=== PATIENT | female | born 1995 | race Caucasian/White ===

== ENCOUNTER 2018-03-23 15:22 | Outpatient (CLI) | payer MEDICAID, SELFPAY ==
[2018-03-23 15:53] LABS: Abs Immature Grans 0.11 k/cumm (0.0-0.09); Absolute Basophil Count 0.03 k/cumm (0.0-0.2); Absolute Eosinophil Count 0.28 k/cumm (0.0-0.7); Absolute Lymphocyte Count 2.45 k/cumm (1.2-3.4); Absolute Monocyte Count 0.96 k/cumm (0.11-0.7); Absolute Neutrophil Count 11.13 k/cumm (1.2-6.7); Basophils % 0.2; Eosinophils % 1.9; HCT 35.5 % (36.0-46.0); HGB 11.7 g/dL (12.0-15.5); Immature Grans % 0.7; Lymphocytes % 16.4; Mean Corpuscular Hemoglobin 26.8 pg (27.0-33.0); Mean Corpuscular Volume 81.2 fL (80-95); Mean Platelet Volume 9.5 fL (8.0-11.0); Monocytes % 6.4; Neutrophils % 74.4; Platelet Count 360 x1000/uL (130-400); RBC 4.37 m/cumm (4.00-5.20); RBC Distribution Width 13.9 % (11.7-14.6); White Blood Cell Count 14.96 k/cumm (4.4-10.8)
[2018-03-23 15:58] LABS: Glucose,1 Hr (Glucola) 112 mg/dL (80-140)
[2018-03-23 16:50] LABS: TSH (W/Ref FT4) 0.93 uIU/mL (0.358-3.74)
[2018-03-25 09:50] LABS: Hepatitis B Surface Ag Negative (NEGAT)
[2018-03-25 10:51] LABS: HIV-1/2 Ag & Ab Screen Negative (NEGAT)
[2018-03-25 10:54] LABS: Hepatitis C Ab w Rflx HCV PCR Negative (NEGAT)
[2018-03-25 11:39] LABS: Rubella IgG Ab (UVM) Positive; Syphilis Serology (RPR) Negative (Negative); Varicella IgG Antibody Positive
== END 2018-03-23 15:42 ==
PROVIDERS: Visit Provider Nurse Practitioner
DX: Z34.93 Encounter for supervision of normal pregnancy, unspecified, third trimester (principal); Z11.4 Encounter for screening for human immunodeficiency virus [HIV]; Z11.59 Encounter for screening for other viral diseases; Z01.84 Encounter for antibody response examination
CPT/HCPCS: 36415; 80055; 82950; 86787; 86803; 86850; 86900; 86901; 87340; 87389; 84443; 86592; 86762

== ENCOUNTER 2018-03-23 15:46 | Outpatient (REF) | payer MEDICAID, SELFPAY ==
[2018-03-23 16:53] LABS: *AMPHETAMINES SCREEN URINE Negative (Negative); *BARBITURATES SCREEN URINE Negative (Negative); *BENZODIAZEPINES SCREEN URINE Negative (Negative); Cannabinoids THC POSITIVE (Negative); Cocaine Screen,Urine Negative (Negative); METHADONE URINE SCREEN Negative (Negative); OPIATES URINE SCREEN Negative (Negative); Tricyclic Antidepressants Negative (Negative)
[2018-03-28 16:17] LABS: Buprenorphine Negative; Norbuprenorphine Negative
== END 2018-03-23 16:06 ==
LOC: LBN 15:46
PROVIDERS: Visit Provider Nurse Practitioner
DX: Z34.93 Encounter for supervision of normal pregnancy, unspecified, third trimester (principal); Z36.85 Encounter for antenatal screening for Streptococcus B; Z36.89 Encounter for other specified antenatal screening
CPT/HCPCS: 80307; 87081; 87086

== ENCOUNTER 2018-03-29 18:50 | Observation (INO) | payer MEDICAID, SELFPAY ==
[2018-03-29 19:49] LABS: ROM Plus Negative
== END 2018-03-29 23:00 | disposition home or self-care (01) ==
PROVIDERS: Admitting Provider Nurse Practitioner; PCP Family Medicine; Visit Provider Nurse Practitioner
DX: O47.03 False labor before 37 completed weeks of gestation, third trimester (principal); Z3A.39 39 weeks gestation of pregnancy
CPT/HCPCS: 84112; G0378

== ENCOUNTER 2018-03-31 02:49 | Observation (INO) | payer MEDICAID, SELFPAY ==
[2018-03-31 05:43] LABS: HCT 34.3 % (36.0-46.0); HGB 11.5 g/dL (12.0-15.5); Mean Corp. HGB Concentration 33.5 g/dL (32.0-36.0); Mean Corpuscular Hemoglobin 26.6 pg (27.0-33.0); Mean Corpuscular Volume 79.2 fL (80-95); Mean Platelet Volume 9.1 fL (8.0-11.0); Platelet Count 416 x1000/uL (130-400); RBC 4.33 m/cumm (4.00-5.20); RBC Distribution Width 13.7 % (11.7-14.6); White Blood Cell Count 15.79 k/cumm (4.4-10.8)
== END 2018-03-31 08:30 | disposition home or self-care (01) ==
PROVIDERS: Admitting Provider Nurse Practitioner; Visit Provider Nurse Practitioner
DX: O47.03 False labor before 37 completed weeks of gestation, third trimester (principal); O09.293 Supervision of pregnancy with other poor reproductive or obstetric history, third trimester; Z3A.39 39 weeks gestation of pregnancy; O99.343 Other mental disorders complicating pregnancy, third trimester; F31.9 Bipolar disorder, unspecified; F43.10 Post-traumatic stress disorder, unspecified; F41.9 Anxiety disorder, unspecified
CPT/HCPCS: 85027; 86850; 86900; 86901

== ENCOUNTER 2018-04-01 08:15 | Inpatient (IN) | payer MEDICAID, SELFPAY ==
[2018-04-01] MEDS: Oxytocin 10 UNITS/ML VIAL IM (08:40)
[2018-04-01 10:21] LABS: HCT 33.9 % (36.0-46.0); HGB 11.2 g/dL (12.0-15.5); Mean Corpuscular Hemoglobin 26.4 pg (27.0-33.0); Mean Platelet Volume 9.2 fL (8.0-11.0); RBC 4.24 m/cumm (4.00-5.20); RBC Distribution Width 13.7 % (11.7-14.6); White Blood Cell Count 21.12 k/cumm (4.4-10.8)
[2018-04-02 07:55] LABS: HCT 34.4 % (36.0-46.0); HGB 11.4 g/dL (12.0-15.5); Mean Corp. HGB Concentration 33.1 g/dL (32.0-36.0); Mean Corpuscular Hemoglobin 26.8 pg (27.0-33.0); Mean Corpuscular Volume 80.9 fL (80-95); Mean Platelet Volume 9.2 fL (8.0-11.0); RBC 4.25 m/cumm (4.00-5.20); RBC Distribution Width 13.8 % (11.7-14.6); White Blood Cell Count 13.73 k/cumm (4.4-10.8)
--- NOTE | 2018-04-02 15:46 | PDOC.CMPRO ---
- If Service Date Differs Date of service: 04/02/18 Time of Service: 15:46 Care Management Progress Note Per OB nursing request, CM visited with Doris, her boyfriend, Yao, and their day old baby, Krunal. Nursing had concern regarding Doris returning home with the baby and wanted to be certain there was a safe plan for discharge. Doris is talkative, engaged in conversation, and makes good eye contact. She and Yao have been together for 10 months and reside in [place]. Doris reports that she has several supportive family members including an uncle who resides next door and assists with her puppy. She reports that she has services through [facility] (Sangeetha and Yulissa) and they are very supportive and helpful. Doris reports that Sangeetha is helping her reschedule with WIC and is attempting to get her home visiting nurses and a psychiatrist at [facility]. Doris and her baby will be discharging home from the hospital tomorrow. CM attempted to contact Sangeetha at [facility] and will attempt to do so again on 04/05.
--- NOTE | 2018-04-02 16:00 | CMPROGNOTE_ITS ---
- If Service Date Differs Date of service: 04/02/18 Time of Service: 15:46 Care Management Progress Note Per OB nursing request, CM visited with Doris, her boyfriend, Yao, and their day old baby, Krunal. Nursing had concern regarding Doris returning home with the baby and wanted to be certain there was a safe plan for discharge. Doris is talkative, engaged in conversation, and makes good eye contact. She and Yao have been together for 10 months and reside in [place]. Doris reports that she has several supportive family members including an uncle who resides next door and assists with her puppy. She reports that she has services through [facility] (Sangeetha and Yulissa) and they are very supportive and helpful. Doris reports that Sangeetha is helping her reschedule with WIC and is attempting to get her home visiting nurses and a psychiatrist at [facility]. Doris and her baby will be discharging home from the hospital tomorrow. CM attempted to contact Sangeetha at [facility] and will attempt to do so again on 04/05.
--- NOTE | 2018-04-03 10:34 | PDOC.CMPRO ---
Care Management Progress Note JOAQUÍN participated in case review with Lauren; Medical Office Administrator at 0700 for approximately thirty minutes. CM encouraged Lauren to make DCF report sharing her concerns. JOAQUÍN spoke with Ann OB RN who reported speaking with DCF, and stating the baby would likely not be ready for discharge until 04/05/18 and anticipated new orders for VNA supports. JOAQUÍN called [facility] requesting connection with Zulma OB RN to review referral needs.
--- NOTE | 2018-04-03 10:40 | CMPROGNOTE_ITS ---
Care Management Progress Note JOAQUÍN participated in case review with Lauren; Protective Signal Operations Supervisor at 0700 for approximately thirty minutes. CM encouraged Lauren to make DCF report sharing her concerns. JOAQUÍN spoke with Ann OB RN who reported speaking with DCF, and stating the baby would likely not be ready for discharge until 04/05/18 and anticipated new orders for VNA supports. JOAQUÍN called [facility] requesting connection with Zulma OB RN to review referral needs.
== END 2018-04-02 15:00 | disposition home or self-care (01) | DRG 807 ==
LOC: OBS 12:21 → NUR 12:21
PROVIDERS: Admitting Provider Advanced Practice Midwife; PCP Family Medicine; Visit Provider Advanced Practice Midwife
DX: O62.3 Precipitate labor (principal); Z37.0 Single live birth; Z3A.39 39 weeks gestation of pregnancy; O99.344 Other mental disorders complicating childbirth; O99.334 Smoking (tobacco) complicating childbirth; F17.210 Nicotine dependence, cigarettes, uncomplicated; F31.9 Bipolar disorder, unspecified; F41.8 Other specified anxiety disorders; F43.10 Post-traumatic stress disorder, unspecified
CPT/HCPCS: 36415; 80307; 85027; 86850; 86900; 86901

== ENCOUNTER 2018-04-02 23:16 | Outpatient (REF) | payer MEDICAID, SELFPAY ==
[2018-04-02 23:40] LABS: *AMPHETAMINES SCREEN URINE Negative (Negative); *BARBITURATES SCREEN URINE Negative (Negative); *BENZODIAZEPINES SCREEN URINE Negative (Negative); Cannabinoids THC POSITIVE (Negative); Cocaine Screen,Urine Negative (Negative); METHADONE URINE SCREEN Negative (Negative); OPIATES URINE SCREEN Negative (Negative)
[2018-04-02 23:41] LABS: Tricyclic Antidepressants Negative (Negative)
[2018-04-09 08:44] LABS: Buprenorphine Negative; Norbuprenorphine Negative
== END 2018-04-02 23:36 ==
LOC: LBN 23:16
PROVIDERS: PCP Family Medicine; Visit Provider Advanced Practice Midwife
DX: F19.21 Other psychoactive substance dependence, in remission (principal)
CPT/HCPCS: 80307

== ENCOUNTER 2018-06-02 16:23 | Emergency (ER) | payer MEDICAID, SELFPAY ==
[2018-06-02 16:32] VITALS: BP 122/85; PULSE 118; RESP 18; TEMP 36.6
--- NOTE | 2018-06-02 16:38 | W.ED.GENAD ---
Discharge Plan Disposition Patient Disposition: HOME Condition: Improving Discharge Details Chief Complaint: PsychEval Clinical Impression: Acute reaction to stress Reason For Visit: suicdal thoughts Primary Care Provider: Janice Maldonado V ED Provider: Geremias Wooten Home Meds and New Rx's Prescriptions: Continued risperidone [Risperdal] 4 mg tablet 5 mg PO DAILY RF: 0 hydroxyzine HCl 50 MG tablet 50 mg PO BID RF: 0 promethazine 25 MG tablet 25 mg PO BID Qty: 30 RF: 0 sertraline 100 MG tablet 50 mg PO HS RF: 0 Discharge Instructions Instructions: Anxiety (ED) Additional Instructions: Return to the emergency department for any acute concerns. Follow-up with mental health services as discussed with them. Continue all regular medications Medical Decision Making 22-year-old female presents with client success specialist. She states that she broke up with her live-in boyfriend today and has been despondent about no current safe domicile which led her to be upset and she stated that she was going to kill herself. She now states that this was an emotional outburst and she has no active plans to harm herself or others. She remains upset about losing her residence and as well due to some stress as she is trying to obtain custody of her child. Medical screening examination performed and patient medically stable for interview by crisis services. She was interviewed by mental health [employer] worker, has established outpatient plan for safety and will spend the night at her parents house. She is stable for discharge at this time. HPI General Mode of arrival: ambulatory. Date/Time Provider Initiated Documentation: 06/02/18 16:26. Limitations to Documentation: no limitations. Information obtained by: patient. History of Present Illness 22 year old F presents to the emergency department with the chief complaint of Emotional outburst, described as moderate, Quality is described as aching, Patient started experiencing this hour(s) and it has been now resolved. No relieving factors improve symptom(s), No exacerbating factors reported . Patient notes no other symptoms.. Patient did receive the following treatments prior to arrival, none Related Data Home Medications Medication Instructions Recorded Confirmed hydroxyzine HCl 50 mg PO BID 08/22/17 06/02/18 promethazine 25 mg PO BID #30 tab 08/22/17 06/02/18 sertraline 50 mg PO HS 11/17/17 06/02/18 risperidone 4 mg tablet 5 mg PO DAILY tab 03/23/18 06/02/18 Previous Rx's Medication Instructions Recorded promethazine 25 mg PO BID #30 tab 08/22/17 Allergies Allergy/AdvReac Type Severity Reaction Status Date / Time No Known Allergies Allergy Unverified 06/02/18 16:37 General Stated Complaint: PsychEval SUJATA: 2 Review of Systems Review of Systems 6 systems reviewed and otherwise neg PFSH Social History Smoking/Tobacco Use Status: Current every day alcohol intake: never substance use type: marijuana History History 1 Para 1 Hx # Term Pregnancies 0 Multiple births 0 Hx # Pregnancies 0 Ectopic pregnancies 0 AB induced 0 Hx Number of Living Children 0 AB spontaneous 0 Exam Narrative Exam Narrative: GEN: awake, alert, oriented 3. Pleasant, well groomed, interactive. HEAD: Normocephalic, atraumatic ENT: Mucous membranes moist, oropharynx unremarkable, External ear exam unremarkable EYES: PERRL, EOMI NECK: Full ROM, no MORRO, no menigismus CHEST/RESP: Nontender, clear to auscultation bilateral, no wheeze/rhonchi/rales CARDIOVASCULAR: RRR, no murmur, rub wanda. 2+ Rad pulse bilateral ABDOMEN: Soft, nontender, no mass. +Bowel sounds EXT: Full ROM, no edema, no rash Neuro: Grossly normal neurologic exam, conversant, interactive. Psych: Speech fluent, thoughts congruent, affect flat Course Vital Signs Temperature 36.6 C 06/02/18 16:32 Pulse 118 H 06/02/18 16:32 Respiratory Rate 18 06/02/18 16:32 Blood Pressure 122/85 06/02/18 16:32 Temperature 36.6 C 06/02/18 16:32 Temperature Source Temporal Artery Scan 06/02/18 16:32 Pulse 118 H 06/02/18 16:32 Respiratory Rate 18 06/02/18 16:32 Respiratory Effort 06/02/18 16:36 Blood Pressure 122/85 06/02/18 16:32 Blood Pressure Position Sitting 06/02/18 16:32
--- NOTE | 2018-06-02 17:00 | NUR.NOTE ---
Nursing Note: Yao from mental health coming in to speak with patient
--- NOTE | 2018-06-02 18:47 | PDOC.MHCN ---
Date of service: 06/02/18 Time of Service: 18:49 Mental Health Crisis Note Presenting Issue How did you arrive at the ED and why did you come: Doris arrived at the emergency room with a Youth Services worker. There were concerns over a break-up with her son's father that have led DCF and Youth Services to be concerned of Doris's safety. She reported having suicidal ideation when the break-up occurred today. Precipitating Factors Doris does not identify having suicidal ideation, a plan, or intent at this time. She reported that she stopped cutting several years ago. She did not present with signs of thought disturbance, paranoia, or delusional thinking. She was alert and oriented times four and was able to access resources she was requesting to hospital staff on her own. She was able to contract for safety with her family and Youth Services worker that was in the hospital with her at the time of this assessment. Disposition BEHAVIOR: pleasant and cheerful EYE CONTACT: good MOOD: euthymic AFFECT: full APPETITE: no problems reported SLEEP(trouble falling/staying asleep: none reported Plan Doris will stay with her brother tonya at her parent's house. She will call [facility] if she feels depressed. The family and youth services confirmed their understanding of how to access mental health emergency services if suicidal ideation returns. Signature Clinician's Name/Title: Yao Rubio MA [facility]
--- NOTE | 2018-06-02 18:56 | PDOC.MHCN_ITS ---
Date of service: 06/02/18 Time of Service: 18:49 Mental Health Crisis Note Presenting Issue How did you arrive at the ED and why did you come: Doris arrived at the emergency room with a Youth Services worker. There were concerns over a break- up with her son's father that have led DCF and Youth Services to be concerned of Doris's safety. She reported having suicidal ideation when the break-up occurred today. Precipitating Factors Doris does not identify having suicidal ideation, a plan, or intent at this time. She reported that she stopped cutting several years ago. She did not present with signs of thought disturbance, paranoia, or delusional thinking. She was alert and oriented times four and was able to access resources she was requesting to hospital staff on her own. She was able to contract for safety with her family and Youth Services worker that was in the hospital with her at the time of this assessment. Disposition BEHAVIOR: pleasant and cheerful EYE CONTACT: good MOOD: euthymic AFFECT: full APPETITE: no problems reported SLEEP(trouble falling/staying asleep: none reported Plan Doris will stay with her brother tonya at her parent's house. She will call [facility] if she feels depressed. The family and youth services confirmed their understanding of how to access mental health emergency services if suicidal ideation returns. Signature Clinician's Name/Title: Yao Rubio MA [facility]
== END 2018-06-02 17:50 | disposition home or self-care (01) ==
PROVIDERS: Emergency Provider Emergency Medicine; PCP Family Medicine
DX: F43.0 Acute stress reaction (principal); R45.851 Suicidal ideations
CPT/HCPCS: 99285; 99284

== ENCOUNTER 2019-05-05 13:56 | Outpatient (CLI) | payer MEDICAID, SELFPAY ==
[2019-05-05 15:22] LABS: HCG Quant, Pregnancy 367 mIU/mL (1-3)
== END 2019-05-05 14:16 ==
PROVIDERS: PCP Family Medicine; Visit Provider Obstetrics & Gynecology
DX: O03.9 Complete or unspecified spontaneous abortion without complication (principal)
CPT/HCPCS: 36415; 84702

== ENCOUNTER 2020-02-27 08:25 | Emergency (ER) | payer MEDICAID, SELFPAY ==
[2020-02-27 08:29] VITALS: BP 115/53; PULSE 86; RESP 18; TEMP 36.3; O2SAT 97
--- NOTE | 2020-02-27 08:32 | ED.GENADUL_ITS ---
Discharge Plan Disposition Patient Disposition: HOME Condition: Stable Discharge Details Clinical Impression: Right ankle sprain Primary Care Provider: Janice Maldonado V ED Provider: Sunitha Carr Home Meds and New Rx's Prescriptions: No Action risperidone [Risperdal] 4 mg tablet 5 mg PO DAILY RF: 0 lamotrigine 25 mg tablet 25 mg PO BID RF: 0 prenat.vits,alicia,[id number] Tablet 1 tab PO DAILY Qty: 90 RF: 3 hydroxyzine HCl 50 MG tablet 50 mg PO BID RF: 0 sertraline 100 mg tablet 100 mg PO HS RF: 0 Discharge Instructions Instructions: Ankle Sprain (ED) Additional Instructions: Follow up with primary care provider in 3-5 days. Return to ED sooner if any worsening or concerns. Increase oral fluids. Please take Tylenol or Ibuprofen with food every 4-6 hours as needed for pain and swelling. Rest, ice, compression, elevation. Use crutches and splint as needed for comfort. Toe- touch weightbearing as tolerated. Referrals: Janice Maldonado MD [Primary Care Provider] - Medical Decision Making <Sunitha Carr - Last Filed: 02/27/20 09:18> 24-year-old female presents to the ED with chief complaint of right ankle pain and swelling after inversion type injury last night approximately 10 PM. Patient states she was stepping off some stairs she stepped wrong inverting her ankle, she did fall to the ground and has had trouble ambulating without pain since the injury. She does have swelling and tenderness noted over the lateral malleolus. Dorsal pedal pulses intact. Cap refill less than 2 seconds. She did not take any medications prior to arrival. EXAM: XR ANKLE RT COMPLETE CLINICAL HISTORY: R/O fracture, injury. TECHNIQUE: 2D digital imaging was performed. COMPARISON: No exams were available for comparison FINDINGS: BONES: No acute fracture is present. No bony destructive lesion is seen. JOINTS: The ankle mortise is normally aligned. SOFT TISSUE: Soft tissue swelling is seen in the ankle laterally. IMPRESSION: 1. No acute fracture or dislocation. 2. Soft tissue swelling about the ankle laterally. Discussed x-ray results with patient, verbalized understanding discussed home care. Patient was given a lace up ankle splint and crutches here in department and instructed on use. Discussed strict return instructions, verbalized understanding. <Corky Durán MD - Last Filed: 02/27/20 09:56> Patient seen, examined, and discussed with ENEIDA Carr. I agree with treatment plan as discussed/documented. HPI <Sunitha Carr - Last Filed: 02/27/20 09:18> General Mode of arrival: wheelchair . Date/Time Provider Initiated Documentation: 02/27/20 08:26 . Limitations to Documentation: no limitations . Information obtained by: patient . HPI Narrative: 24-year-old female presents to the ED with chief complaint of right ankle pain and swelling after inversion type injury last night approximately 10 PM. Patient states she was stepping off some stairs she stepped wrong inverting her ankle, she did fall to the ground and has had trouble ambulating without pain since the injury. She does have swelling and tenderness noted over the lateral malleolus. Dorsal pedal pulses intact. Cap refill less than 2 seconds. She did not take any medications prior to arrival. Related Data Home Medications Medication Instructions Recorded Confirmed hydroxyzine HCl 50 mg PO BID 08/22/17 02/27/20 risperidone 4 mg tablet 5 mg PO DAILY tab 03/23/18 02/27/20 lamotrigine 25 mg tablet 25 mg PO BID tab 09/08/18 02/27/20 sertraline 100 mg tablet 100 mg PO HS tab 05/05/19 02/27/20 prenat.vits,alicia,[id number] 1 tab PO DAILY #90 tab 05/23/19 02/27/20 Previous Rx's Medication Instructions Recorded prenat.vits,alicia,kae-[id number] 1 tab PO DAILY #90 tab 05/23/19 Allergies Allergy/AdvReac Type Severity Reaction Status Date / Time ziprasidone [[facility]] AdvReac Verified 02/27/20 08:36 bug spray Allergy Intermediate Hives Uncoded 02/27/20 08:36 General SUJATA: 2 Review of Systems <Sunitha Carr - Last Filed: 02/27/20 09:18> All systems reviewed & are unremarkable except as noted in HPI and below Musculoskeletal Musculoskeletal: Reports arthralgias and Reports joint swelling (Right ankle) PFSH <Sunitha Carr - Last Filed: 02/27/20 09:18> Medical History Anxiety disorder, unspecified Bipolar disorder, unspecified Trauma and stressor-related disorder Social History Smoking/Tobacco Use Status: Current every day Tobacco Type: cigarettes Smoking packs per day: 0.5 Smoking cigarettes per day: 10.0 Tobacco: How many years used: 7 Quit status: considering quitting Alcohol Intake: current Alcohol Intake frequency: a few times a month Drug use: Daily Substance use type: marijuana Seatbelt use: always Do you feel safe at home: Yes Do you feel safe in your relationship?: Yes Female Reproductive History Menstrual control method: none History History 1 Para 1 Hx # Term Pregnancies 0 Multiple births 0 Hx # Pregnancies 0 Ectopic pregnancies 0 AB induced 0 Hx Number of Living Children 0 AB spontaneous 0 Past Pregnancies Del. Date GA/Weeks # Outcome Route Wgt Sex Labor Lgth Anesthes ia Location Prov Complic 04/01/18 39 No Successful vaginal 3090.098 g Male aneamanda walters cnm Delivery Date: 04/01/18 precipitous labor< 3 hrs shoulder dystocia risk d/t BMI over 30 Niecy Jerome LPN
[2020-02-27] MEDS: Ibuprofen 600 MG TAB PO (08:35)
== END 2020-02-27 09:28 | disposition home or self-care (01) ==
PROVIDERS: Emergency Provider Registered Nurse Emergency; PCP Family Medicine
DX: S93.491A Sprain of other ligament of right ankle, initial encounter (principal); W10.8XXA Fall (on) (from) other stairs and steps, initial encounter; X50.9XXA Other and unspecified overexertion or strenuous movements or postures, initial encounter
CPT/HCPCS: 29515; 81025; 99283; 73610; 99281; E0114; L1902

== ENCOUNTER 2020-04-09 17:12 | Outpatient (REF) | payer MEDICAID, SELFPAY ==
--- NOTE | 2020-04-09 15:00 | PAPFT_PTH ---
PATIENT: Doris Hart LOC: [facility]#:[id number] AGE/SX: 24/F ROOM: RE04/09/[address]: Dorcas Castaneda : 1995 BED: DIS: 04/09/2020 SPEC #: [id number] RECD: 04/10/20 12:54 STATUS: GUNNER REQ #: [id number] ESEQUIEL: 04/09/20 15:[address]: Dorcas Castaneda DEPT: [facility] Cytology RECD BY: Natalya Hoover ENTERED: 04/10/20 12:55 SP TYPE: PAPFT OTHR DR: Janice Maldonado V Tissues: 1 - CX/ENDOCX FOR PAP SMEARS Procedures: PAP THIN PREP/[facility] Screening Comments: [id number] (CHLAMYDIA/GC)
[2020-04-16 16:12] LABS: Chlamydia Result Negative (Negative); GC Result Negative (Negative)
== END 2020-04-09 17:32 ==
LOC: NCHCN 17:12
PROVIDERS: PCP Family Medicine; Visit Provider Family Medicine
DX: Z00.00 Encounter for general adult medical examination without abnormal findings (principal); Z12.4 Encounter for screening for malignant neoplasm of cervix; Z01.419 Encounter for gynecological examination (general) (routine) without abnormal findings
CPT/HCPCS: 87491; 87591; 88142

== ENCOUNTER 2020-06-01 20:31 | Outpatient (REF) | payer MEDICAID, SELFPAY ==
[2020-06-01 21:35] LABS: HCG Quant, Pregnancy < 1 mIU/mL (1-3)
== END 2020-06-01 20:51 ==
LOC: NCHCN 20:31
PROVIDERS: PCP Family Medicine; Visit Provider Family Medicine
DX: N91.2 Amenorrhea, unspecified (principal)
CPT/HCPCS: 84702

== ENCOUNTER 2020-06-27 02:20 | Outpatient (CLI) | payer MEDICAID, SELFPAY ==
--- NOTE | 2020-06-27 | DI.US_ITS ---
EXAM: US PELVIS TRANSVAGINAL CLINICAL HISTORY: AMENORRHEA, N91.2 TECHNIQUE: Transabdominal and transvaginal imaging was performed using standard protocol. COMPARISON: No exams were available for comparison FINDINGS: KIDNEYS: Kidneys are symmetric in size. No evidence of renal calculi. No evidence of hydronephrosis. No renal mass or cyst identified. Bladder: Unremarkable as visualized. UTERUS: Anteverted. 9.1 x 3.0 x 4.1 cm. Endometrium: 8 millimeters in thickness. Homogeneous. Myometrium: Unremarkable. Cervix: Unremarkable. OVARIES: Right: Cyst or mass: None. Left: Cyst or mass: None. DOPPLER: Color: Symmetric and uniform flow to both ovaries. No hyperemia. Duplex: Normal ovarian arterial waveforms visualized. CUL-DE-SAC: Free fluid: None. IMPRESSION: 1. Normal-appearing uterus with endometrial stripe within normal limits. 2. Unremarkable bilateral ovaries. DATA REPOSITORY:
== END 2020-06-27 02:21 ==
LOC: DI 02:20
PROVIDERS: PCP Family Medicine; Visit Provider Family Medicine
DX: N91.2 Amenorrhea, unspecified (principal)
CPT/HCPCS: 76830; 76856

== ENCOUNTER 2020-10-09 16:34 | Outpatient (REF) | payer MEDICAID, SELFPAY ==
[2020-10-11 15:28] LABS: COVID-19 RT-PCR UVMMC Result Negative (Negative)
== END 2020-10-09 16:35 | disposition home or self-care (01) ==
LOC: NCHCN 16:34
PROVIDERS: PCP Family Medicine; Visit Provider Family Medicine
DX: Z20.822 Contact with and (suspected) exposure to COVID-19 (principal); J06.9 Acute upper respiratory infection, unspecified
CPT/HCPCS: U0003

== ENCOUNTER 2021-01-19 14:06 | Emergency (ER) | payer MEDICAID, SELFPAY ==
[2021-01-19 14:23] VITALS: BP 101/56; PULSE 68; RESP 16; TEMP 36.6; O2SAT 99
--- NOTE | 2021-01-19 14:56 | W.ED.GENAD ---
Discharge Plan Disposition Patient Disposition: HOME Condition: Improving Discharge Details Clinical Impression: Vomiting during Primary Care Provider: Dorcas Castaneda ED Provider: Charlie Chambers Home Meds and New Rx's Prescriptions: New ondansetron HCl [Zofran] 4 mg tablet 4 mg PO Q8H PRNQty: 10 RF: 0 Continued risperidone [Risperdal] 4 mg tablet 5 mg PO DAILY RF: 0 prenat.vits,alicia,[id number] Tablet 1 tab PO DAILY Qty: 90 RF: 3 hydroxyzine HCl 50 MG tablet 50 mg PO BID RF: 0 sertraline 100 mg tablet 100 mg PO HS RF: 0 Discharge Instructions Instructions: Nausea and Vomiting in (ED) Additional Instructions: Zofran as directed. Clear liquid diet, advance as tolerated. Plenty of fluids to avoid dehydration. Please watch for new or worsening symptoms and return to the ER for any concerns. Lastly, please contact your [facility] team on Thursday to discuss your ongoing symptoms and need for outpatient reevaluation, they may want to see you sooner than your scheduled appointment Discharge Data Discharge Date/Time-TO BE ENTERED AT DEPARTURE: 01/19/21 17:28 Medical Decision Making <ROHINI Suazo - Last Filed: 01/20/21 08:25> This is a 25-year-old female, G2, P1, approximately 6 weeks who has already established local [facility] care. She is presenting for nausea and vomiting, reports mild epigastric discomfort after vomiting. Denies fever, lower abdominal pain, vaginal bleeding or discharge, back pain, dysuria or hematuria. Upon presentation blood pressure is 101/56 pulse 68, afebrile, O2 sats 99% on room air. Clinically she appears well, nontoxic, abdomen is soft, nontender. Like to obtain IV access, give IV fluid, Zofran, routine laboratory values, urinalysis and reassess. Laboratory values reveal mild nonspecific leukocytosis which can be completely normal in , abdomen is soft, nontender. No evidence of anemia, platelet count is 345, electrolytes reveal sodium 137 potassium 3.8 BUN 8 creatinine 0.7 with a GFR greater than 60 glucose 109, urinalysis reveals 80 ketones. No signs of infection. Patient received 1 L of IV fluid and 4 mg IV Zofran. Patient states that she is feeling improvement and would like to be discharged. He is agreeable to a second liter of IV fluid and p.o. challenge. Patient was able to tolerate a couple bites of a sandwich and some apple juice. She then had a sip of water and did vomit the water back up. Patient will be observed while the second liter of IV fluid is infused. Clinically she appears improved, no signs of distress, no active dry heaving or vomiting, likely hyperemesis gravidarum. Patient will be discharged with a prescription for Zofran, encouraged to return to the ER for new or worsening symptoms, otherwise will contact her [facility] team on Thursday to discuss her ongoing symptoms and need for outpatient reevaluation. Medical Records Medical records reviewed: Yes I reviewed the patient's medical records. Lab Data Lab results reviewed: Yes I reviewed the patient's lab results. Labs: Laboratory Tests Range/Units 01/19/21 01/19/21 01/19/21 14:40 14:40 15:18 WBC (4.4-10.8) 10^3/uL 13.43 H RBC (3.93-5.22) 10^6/uL 5.20 Hgb (11.2-15.7) g/dL 13.9 Hct (36.0-46.0) % 42.1 MCV (80-95) fL 81.0 MCH (27.0-33.0) pg 26.7 L MCHC (32.0-36.0) % 33.0 RDW (11.7-14.6) % 13.6 Plt Count (130-400) 10^3/uL 345 MPV (8.0-11.0) fL 9.3 Immature Gran % 0.6 Neutrophils % 85.1 Lymphocytes % 10.1 Monocytes % 3.6 Eosinophils % 0.4 Basophils % 0.2 Nucleated RBC % % 0 Absolute Neutrophils (1.2-6.7) 10^3/uL 11.43 H Absolute Lymphocytes (1.2-3.4) 10^3/uL 1.36 Absolute Monocytes (0.1-0.8) 10^3/uL 0.48 Absolute Eosinophils (0.0-0.7) 10^3/uL 0.05 Absolute Basophils (0.0-0.2) 10^3/uL 0.03 Sodium (136-145) mmol/L 137 Potassium (3.5-5.1) mmol/L 3.8 Chloride (98-107) mmol/L 105 Carbon Dioxide (21.0-32.0) mmol/L 20.3 L Anion Gap (3-11) mmol/L 11.7 H BUN (7-18) mg/dL 8 Creatinine (0.55-1.02) mg/dL 0.7 Estimated GFR/1.73 m2 (mL/min/1.73m2) >= 60.00 Glucose (74-106) mg/dL 109 H Calcium (8.5-10.1) mg/dL 9.4 Total Bilirubin (0.2-1.0) mg/dL 0.4 AST (15-37) U/L 13 L ALT (14-59) U/L 17 Alkaline Phosphatase (46-116) U/L 93 Total Protein (6.4-8.2) g/dL 7.5 Albumin (3.4-5.0) g/dL 3.8 Lipase (73-393) U/L 77 Urine Color (Yellow) Yellow Urine Clarity (Clear) Sl Cloudy Urine pH (5-8) >= 9.0 H Ur Specific [place] (1.005-1.025) 1.020 Urine Protein (Negative) mg/dL 100 H Urine Ketones (Negative) mg/dL 80 H Urine Blood (Negative) Negative Urine Nitrite (Negative) Negative Urine Bilirubin (Negative) Negative Urine Urobilinogen (Up TO 0.2) EU/dL 0.2 Ur Leukocyte Esterase (Negative) Negative Urine RBC (0-2) HPF 0-2 Urine WBC (0-5) HPF 3-5 Ur Epithelial Cells (Negative) HPF Few Urine Crystals (Negative) HPF Negative Urine Bacteria (Negative) HPF Rare Urine Casts (Negative) LPF Negative Urine Mucus (Negative) Moderate Ur Culture Indicated? No Urine Glucose (Negative) mg/dL Negative <ROHINI Tellez - Last Filed: 01/19/21 20:08> Patient was discharged prior to my evaluation by the primary provider HPI <ROHINI Suazo - Last Filed: 01/20/21 08:25> General Mode of arrival: ambulatory. Date/Time Provider Initiated Documentation: 01/19/21 14:30. Limitations to Documentation: no limitations. Information obtained by: patient and family. HPI Narrative: This is a 25-year-old female, G2, P1, approximately 6 weeks, past medical history of anxiety, bipolar, presenting to the ER for nausea and vomiting. Patient states that she has some mild epigastric discomfort after vomiting but otherwise has no abdominal pain whatsoever. She denies recent illness or trauma. She denies fever, chest pain, shortness of breath, lower abdominal pain, dysuria, hematuria, vaginal bleeding or discharge. She denies any back pain. Patient states that her first was uncomplicated. She has established [facility] care [facility] with [facility] and is scheduled to be seen in the next 2 weeks. Patient is concerned that she may be dehydrated as she is having difficulty holding down any food or fluids. Related Data Home Medications Medication Instructions Recorded Confirmed hydroxyzine HCl 50 mg PO BID 08/22/17 01/19/21 risperidone 4 mg tablet 5 mg PO DAILY tab 03/23/18 01/19/21 sertraline 100 mg tablet 100 mg PO HS tab 05/05/19 01/19/21 prenat.vits,alicia,rtz-ovrk-[id number] 1 tab PO DAILY #90 tab 05/23/19 01/19/21 ondansetron HCl [Zofran] 4 mg PO Q8H PRN #10 tab 01/19/21 Previous Rx's Medication Instructions Recorded prenat.vits,alicia,ytc-gakj-lpyus 1 tab PO DAILY #90 tab 05/23/19 ondansetron HCl [Zofran] 4 mg PO Q8H PRN #10 tab 01/19/21 Allergies Allergy/AdvReac Type Severity Reaction Status Date / Time bee venom protein (honey bee) Allergy Severe Verified 01/19/21 14:27 ziprasidone [From Geodon] AdvReac Verified 01/19/21 14:27 bug spray Allergy Intermediate Hives Uncoded 01/19/21 14:27 General Stated Complaint: Nausea/Vomit/Diar SUJATA: 3 <ROHINI Tellez - Last Filed: 01/19/21 20:08> General Mode of arrival: ambulatory. Limitations to Documentation: no limitations. Information obtained by: patient. HPI Narrative: This 25-year-old female presents with report of Review of Systems <ROHINI Suazo - Last Filed: 01/20/21 08:25> Constitutional Constitutional: Denies fever(s) Cardiovascular Cardiovascular: Denies chest pain and Denies dyspnea Respiratory Respiratory: Denies cough and Denies dyspnea Gastrointestinal Gastrointestinal: Reports abdominal pain, Denies diarrhea, Reports nausea and Reports vomiting Genitourinary Genitourinary: Denies abnormal vaginal bleeding, Denies dysuria and Denies vaginal discharge Musculoskeletal Musculoskeletal: Denies back pain Integumentary/Breasts Skin/Breast: Denies rash PFSH <ROHINI Suazo - Last Filed: 01/20/21 08:25> Medical History Anxiety disorder, unspecified Bipolar disorder, unspecified Trauma and stressor-related disorder Social History Smoking/Tobacco Use Status: Current-Occasional Tobacco Type: cigarettes Smoking packs per day: 0.5 Smoking cigarettes per day: 10.0 Tobacco: How many years used: 7 Quit status: considering quitting Smoking risk assessment performed?: Yes Alcohol Intake: current Alcohol Intake frequency: a few times a month Drug use: Daily Substance use type: marijuana Seatbelt use: always Do you feel safe at home: Yes Do you feel safe in your relationship?: Yes Female Reproductive History Menstrual control method: none History History 1 Para 1 Hx # Term Pregnancies 0 Multiple births 0 Hx # Pregnancies 0 Ectopic pregnancies 0 AB induced 0 Hx Number of Living Children 0 AB spontaneous 0 Past Pregnancies Del. Date GA/Weeks # Outcome Route Wgt Sex Labor Lgth Anesthesia Location Prov Complic 04/01/18 39 No Successful vaginal 3090.098 g Male amy santo Delivery Date: 04/01/18 precipitous labor< 3 hrs shoulder dystocia risk d/t BMI over 30 Niecy Jerome LPN Exam <ROHINI Suazo - Last Filed: 01/20/21 08:25> Const General: cooperative, healthy appearing, comfortable and no acute distress Orientation: alert, awake and oriented x3 HENMT Head: normal to inspection, normocephalic and atraumatic Face and sinus: normal facial exam Mouth: moist mucous membranes Eyes General: appearance normal, both eyes and all related structures Conjunctivae: conjunctivae normal Neck Neck: normal visual inspection, full ROM, trachea midline and supple Resp Effort & Inspection: normal respiratory effort and able to speak in complete sentences Auscultation: clear to auscultation bilaterally Cardio Rate: regular rate Rhythm: regular rhythm GI Inspection: normal to inspection and obesity Palpation: soft, not firm, no guarding, no pulsatile masses and nontender Auscultation: normal bowel sounds Back/Spine/Pelvis Back: No back tenderness Skin General skin exam: no rashes or lesions noted Neuro General: patient alert, patient awake, moves all extremities and no focal motor deficits Cognition: normal cognition Speech: speech normal Gait: normal gait Sensory Exam: no sensory deficits noted Extrem General: normal to inspection and full ROM Psych Appearance: grossly normal Mental Status: mental status grossly normal Course <ROHINI Suazo - Last Filed: 01/20/21 08:25> Vital Signs Vital signs: Vital Signs Temperature 36.6 C 01/19/21 14:23 Pulse 68 01/19/21 14:23 Respiratory Rate 16 01/19/21 14:23 Blood Pressure 101/56 L 01/19/21 14:23 Pulse Oximetry 99 01/19/21 14:23 Temperature 36.6 C 01/19/21 14:23 Temperature Source Temporal Artery Scan 01/19/21 14:23 Pulse 68 01/19/21 14:23 Respiratory Rate 16 01/19/21 14:23 Respiratory Effort 01/19/21 14:43 Blood Pressure 101/56 L 01/19/21 14:23 Blood Pressure Position Supine 01/19/21 14:23 Pulse Oximetry 99 01/19/21 14:23 Oxygen Delivery Method Room Air 01/19/21 14:23 Oxygen Flow Rate 0 01/19/21 14:23 Pain Level 5 01/19/21 14:23 Comment 01/19/21 14:23
[2021-01-19] MEDS: Normal Saline 1,000 ML 1000 ML IV ×2 (15:02→16:14)
[2021-01-19] MEDS: Ondansetron 4 MG/2 ML VIAL IVP ×2 (15:03→16:39)
[2021-01-19 15:22] LABS: Bilirubin Negative (Negative); Blood Negative (Negative); Clarity Sl Cloudy (Clear); Glucose Negative (Negative); Ketones 80 mg/dL (Negative); Leukocyte Esterase Negative (Negative); Nitrite Negative (Negative); Urobilinogen 0.2 EU/dL (Up TO 0.2); pH >= 9.0 (5-8)
[2021-01-19 15:29] LABS: Abs Immature Grans 0.08 10^3/uL (0.0-0.06); Absolute Basophil Count 0.03 10^3/uL (0.0-0.2); Absolute Eosinophil Count 0.05 10^3/uL (0.0-0.7); Absolute Lymphocyte Count 1.36 10^3/uL (1.2-3.4); Absolute Monocyte Count 0.48 10^3/uL (0.1-0.8); Absolute Neutrophil Count 11.43 10^3/uL (1.2-6.7); Basophils % 0.2; Eosinophils % 0.4; HCT 42.1 % (36.0-46.0); HGB 13.9 g/dL (11.2-15.7); Immature Grans % 0.6; Lymphocytes % 10.1; MCH 26.7 pg (27.0-33.0); MPV 9.3 fL (8.0-11.0); Monocytes % 3.6; Neutrophils % 85.1; Nucleated RBC 0 %; Platelet Count 345 10^3/uL (130-400); RDW 13.6 % (11.7-14.6); RDW-SD 39.8 fL; WBC 13.43 10^3/uL (4.4-10.8)
[2021-01-19 15:41] LABS: ALT 17 U/L (14-59); AST 13 U/L (15-37); Albumin 3.8 g/dL (3.4-5.0); Alkaline Phosphatase 93 U/L (46-116); Anion Gap 11.7 mmol/L (3-11); BUN 8 mg/dL (7-18); Bilirubin, Total 0.4 mg/dL (0.2-1.0); CO2 20.3 mmol/L (21.0-32.0); CREATININE 0.7 mg/dL (0.55-1.02); Calcium 9.4 mg/dL (8.5-10.1); Chloride 105 mmol/L (98-107); Glucose 109 mg/dL (74-106); Lipase 77 U/L (73-393); Potassium 3.8 mmol/L (3.5-5.1); Sodium 137 mmol/L (136-145); Total Protein 7.5 g/dL (6.4-8.2)
[2021-01-19 15:56] LABS: Bacteria Rare HPF (Negative); C & S Indicated? No; Casts Negative LPF (Negative); Crystals Negative HPF (Negative); Epithelial Cells Few HPF (Negative); Mucus Moderate (Negative); RBC 0-2 HPF (0-2)
[2021-01-19 16:49] VITALS: BP 98/59; PULSE 85; RESP 16; TEMP 36.8; O2SAT 100
== END 2021-01-19 17:28 | disposition home or self-care (01) ==
PROVIDERS: Emergency Provider Physician Assistant; PCP Family Medicine
DX: O21.0 Mild hyperemesis gravidarum (principal); Z3A.01 Less than 8 weeks gestation of pregnancy; O99.331 Smoking (tobacco) complicating pregnancy, first trimester; O99.341 Other mental disorders complicating pregnancy, first trimester; O99.311 Alcohol use complicating pregnancy, first trimester; R10.13 Epigastric pain; F17.210 Nicotine dependence, cigarettes, uncomplicated; F31.9 Bipolar disorder, unspecified; F10.10 Alcohol abuse, uncomplicated
CPT/HCPCS: 36415; 80053; 83690; 96361; 96374; 96376; 99284; 81003; 81015; 85025; J2405

== ENCOUNTER 2021-01-22 12:04 | Emergency (ER) | payer MEDICAID, SELFPAY ==
[2021-01-22 12:14] VITALS: BP 129/66; PULSE 83; RESP 18; TEMP 36.9; O2SAT 99
--- NOTE | 2021-01-22 12:31 | DI.US_ITS ---
Exam(s) US OB 1ST TRIMESTER EXAM: US OB 1ST TRIMESTER CLINICAL HISTORY: positive , Vomiting, Abdominal pain. COMPARISON: No exams were available for comparison TECHNIQUE: Transabdominal Transvaginal first trimester obstetrical ultrasound performed. FINDINGS: Sonographic images demonstrate a single intrauterine gestation. A yolk sac and pole are seen. Sonographically assessed gestational age based upon crown-rump length of 1.1 cm is: 7 weeks 1 days. Estimated date of delivery based on this ultrasound is: 09 September 2021 Estimated date of delivery based upon LMP: 05 September 2021 heart rate motion is Dopplered at: 160 bpm. No free fluid identified. Cervix appears normal. There is a question of a minimal subchorionic hemorrhage. Pelvic Measurments Uterus: 10.9 x 6.3 x 7.7 cm Rt Ovary: 1.7 x 1.7 x 1.1 cm Lt Ovary: 2.5 x 2.5 x 1.8 cm. 1.4 centimeter corpus luteum cyst. IMPRESSION: Single live intrauterine gestation 7 weeks 1 day. Question minimal subchorionic hemorrhage. DATA REPOSITORY:
--- NOTE | 2021-01-22 12:33 | ED.GENADUL_ITS ---
Discharge Plan Disposition Patient Disposition: HOME Condition: Stable Discharge Details Clinical Impression: Abdominal pain during , Hyperemesis gravidarum Primary Care Provider: Dorcas Castaneda ED Provider: Sunitha Carr Home Meds and New Rx's Prescriptions: New metoclopramide HCl [Reglan] 10 mg tablet 10 mg PO QACHS PRN (Reason: nausea and vomiting) Qty: 14 RF: 0 pyridoxine (vitamin B6) 25 mg tablet 25 mg PO BID 10 Days Qty: 20 RF: 0 No Action prenat.vits,alicia,uiz-ocyj-ujjyy Tablet 1 tab PO DAILY Qty: 90 RF: 3 ondansetron HCl [Zofran] 4 mg tablet 4 mg PO Q8H PRNQty: 10 RF: 0 risperidone 1 mg tablet 1 mg PO DAILY AM RF: 0 promethazine [Promethegan] 25 mg suppository [address] RF: 0 hydroxyzine HCl 50 MG tablet 50 mg PO BID RF: 0 sertraline 100 mg tablet 100 mg PO HS RF: 0 Discharge Instructions Instructions: Hyperemesis Gravidarum (ED), Abdominal Pain (ED) Additional Instructions: Try the Vitamin B 6 twice daily as instructed for nausea. May take the Reglan as needed for breakthrough nausea and vomiting. Small frequent meals. Try lemon and ramón. Try to keep yourself hydrated. Follow-up with [facility] in the next 1 to 2 weeks. Ultrasound today showed a intrauterine single live estimated at 7 weeks 2 days. Follow up with primary care provider in 3-5 days. Return to ED sooner if any worsening or concerns. Increase oral fluids. Referrals: Dorcas Castaneda [Primary Care Provider] - Viola Aaron MD [ [facility] STAFF PHYSICIAN] - 1 week Discharge Data Discharge Date/Time-TO BE ENTERED AT DEPARTURE: 01/22/21 14:52 Medical Decision Making 24-year-old female G2, P1 presents to the ER with vomiting for the last week. Patient states that she is approximately 7 weeks and began vomiting unable to keep down fluids. She was seen in the emergency room approximately 3 days ago was prescribed Zofran received 2 L normal saline. Patient states that the medication are not working she has not taken anything for nausea today. She was also seen at [facility] and was given Phenergan suppositories. Patient has not had a first ultrasound for this . She denies any vaginal discharge or bleeding. Last normal menstrual period 11/29/2020. CBC, CMP, UA, hCG quant and pelvic ultrasound ordered at this time. 1 L normal saline and 10 mg Reglan ordered. Patient reports feeling better, requesting apple juice. EXAM: US OB 1ST TRIMESTER FINDINGS: Sonographic images demonstrate a single intrauterine gestation. A yolk sac and pole are seen. Sonographically assessed gestational age based upon crown-rump length of 1.1 cm is: 7 weeks 1 days. Estimated date of delivery based on this ultrasound is: 09 September 2021 Estimated date of delivery based upon LMP: 05 September 2021 heart rate motion is Dopplered at: 160 bpm. No free fluid identified. Cervix appears normal. There is a question of a minimal subchorionic hemorrhage. Pelvic Measurments Uterus: 10.9 x 6.3 x 7.7 cm Rt Ovary: 1.7 x 1.7 x 1.1 cm Lt Ovary: 2.5 x 2.5 x 1.8 cm. 1.4 centimeter corpus luteum cyst. IMPRESSION: Single live intrauterine gestation 7 weeks 1 day. Question minimal subchorionic hemorrhage. Discussed ultrasound results with patient who verbalized understanding. She reports feeling better after the Reglan and is tolerating p.o. without difficulty. Plan is to discharge home with instructions to follow-up with [facility] in the next 1 to 2 weeks. Prescription for Reglan given. Patient remained hemodynamically stable throughout stay. This text was generated using [employer] dictation system, please disregard any oddities of phrase or misspellings. HPI General Mode of arrival: ambulatory . Date/Time Provider Initiated Documentation: 01/22/21 12:25 . Limitations to Documentation: no limitations . Information obtained by: patient and RN notes reviewed . HPI Narrative: 24-year-old female G2, P1 presents to the ER with vomiting for the last week. Patient states that she is approximately 7 weeks and began vomiting unable to keep down fluids. She was seen in the emergency room approximately 3 days ago was prescribed Zofran received 2 L normal saline. Patient states that the medication are not working she has not taken anything for nausea today. She was also seen at [facility] and was given Phenergan suppositories. Patient has not had a first ultrasound for this . She denies any vaginal discharge or bleeding. Last normal menstrual period 11/29/2020. Related Data Home Medications Medication Instructions Recorded Confirmed hydroxyzine HCl 50 mg PO BID 08/22/17 01/22/21 sertraline 100 mg tablet 100 mg PO HS tab 05/05/19 01/22/21 prenat.vits,alicia,hxj-guzc-fqzfv 1 tab PO DAILY #90 tab 05/23/19 01/22/21 ondansetron HCl [Zofran] 4 mg PO Q8H PRN #10 tab 01/19/21 01/22/21 metoclopramide HCl [Reglan] 10 mg PO QACHS PRN #14 tab 01/22/21 promethazine [Promethegan] [address] 01/22/21 pyridoxine (vitamin B6) 25 mg PO BID 10 Days #20 tab 01/22/21 risperidone 1 mg PO DAILY AM 01/22/21 01/22/21 Previous Rx's Medication Instructions Recorded prenat.vits,alicia,bmy-aoba-zcwbr 1 tab PO DAILY #90 tab 05/23/19 ondansetron HCl [Zofran] 4 mg PO Q8H PRN #10 tab 01/19/21 metoclopramide HCl [Reglan] 10 mg PO QACHS PRN #14 tab 01/22/21 pyridoxine (vitamin B6) 25 mg PO BID 10 Days #20 tab 01/22/21 Allergies Allergy/AdvReac Type Severity Reaction Status Date / Time bee venom protein (honey bee) Allergy Severe Verified 01/22/21 12:19 ziprasidone [From Geodon] AdvReac Verified 01/22/21 12:19 bug spray Allergy Intermediate Hives Uncoded 01/22/21 12:19 General Stated Complaint: Abd Prob SUJATA: 3 Review of Systems Narrative: Constitutional: Negative for weight loss, alert and oriented, well groomed, obese body habitus, appears comfortable. HEENT: Denies trauma, headaches, blurry vision, nasal discharge, sore throat, trouble swallowing. Chest: Denies chest pain, palpitations, irregular rhythm, hypertension. Respiratory: Denies Shortness of breath, cough, hemoptysis. GI: Denies diarrhea, constipation. Positive right lower quadrant abdominal pain, nausea, vomiting. Patient is approximately 7 weeks. Last normal menstrual period 11/29/2020. : Denies dysuria, hematuria, flank pain, rectal bleeding. Neuro: Denies dizziness, blurry vision, weakness, syncope, headache or facial numbness. Hematologic: Denies easy bruising, intolerance to heat or cold, hair loss. [facility] Medical History Anxiety disorder, unspecified Bipolar disorder, unspecified Trauma and stressor-related disorder Social History Smoking/Tobacco Use Status: Current-Occasional Tobacco Type: cigarettes Smoking packs per day: 0.5 Smoking cigarettes per day: 10.0 Tobacco: How many years used: 7 Quit status: considering quitting Smoking risk assessment performed?: Yes Alcohol Intake: current Alcohol Intake frequency: a few times a month Drug use: Daily Substance use type: marijuana Seatbelt use: always Do you feel safe at home: Yes Do you feel safe in your relationship?: Yes Female Reproductive History Menstrual control method: none History History 1 Para 1 Hx # Term Pregnancies 0 Multiple births 0 Hx # Pregnancies 0 Ectopic pregnancies 0 AB induced 0 Hx Number of Living Children 0 AB spontaneous 0 Past Pregnancies Del. Date GA/Weeks # Outcome Route Wgt Sex Labor Lgth Anesthes ia Location Prov Complic 04/01/18 39 No Successful vaginal 3090.098 g Male mica walters cnm Delivery Date: 04/01/18 precipitous labor< 3 hrs shoulder dystocia risk d/t BMI over 30 Niecy Jerome LPN Exam Narrative Exam Narrative: Constitutional: Alert and oriented x3. Appears stated age. Normal body habitus. Head: Normocephalic, no trauma. Eyes: Pupils PERRLA, Red reflex noted, EOM's intact. Eyelids symmetrical without lesions, discharge, or swelling. ENT: Bilateral TM's WNL, External ear normal to inspection, no mastoid TTP, swelling, or erythema, Nasal turbinates WNL, no nasal discharge. Normal dentition, Posterior pharynx WNL, no exudate. Chest: RRR, Normal S1, S2, distal pulses intact. Resp: Lungs clear to auscultation bilaterally, no wheezes, rales, or rhonchi. Abdomen: Soft, nondistended nontender to palpation all 4 quadrants. Musculoskeletal: Normal gait, 5/5 strength to all four extremities. Skin: No suspicious rashes or lesions. Capillary refill less than 2 sec. Neurologic: Cranial nerves II-XII intact. Alert and oriented x 3. DTR's intact. Hematologic/Lymphatic: No ecchymosis, no lymphadenopathy. Course Vital Signs Vital signs: Vital Signs Temperature 36.9 C 01/22/21 12:14 Pulse 83 01/22/21 12:14 Respiratory Rate 18 01/22/21 12:14 Blood Pressure 129/66 01/22/21 12:14 Pulse Oximetry 99 01/22/21 12:14 Temperature 36.9 C 01/22/21 12:14 Temperature Source Temporal Artery Scan 01/22/21 12:14 Pulse 83 01/22/21 12:14 Respiratory Rate 18 01/22/21 12:14 Respiratory Effort 01/22/21 12:23 Blood Pressure 129/66 01/22/21 12:14 Blood Pressure Position Sitting 01/22/21 12:14 Pulse Oximetry 99 01/22/21 12:14 Oxygen Delivery Method Room Air 01/22/21 12:14 Oxygen Flow Rate 0 01/22/21 12:14 Pain Level 7 01/22/21 12:14
[2021-01-22] MEDS: Normal Saline 1,000 ML 1000 ML IV (12:55)
[2021-01-22] MEDS: Metoclopramide 10 MG/2 ML VIAL IVP (12:55)
[2021-01-22 12:56] LABS: Abs Immature Grans 0.06 10^3/uL (0.0-0.06); Absolute Basophil Count 0.05 10^3/uL (0.0-0.2); Absolute Eosinophil Count 0.08 10^3/uL (0.0-0.7); Absolute Monocyte Count 0.71 10^3/uL (0.1-0.8); Absolute Neutrophil Count 7.84 10^3/uL (1.2-6.7); Basophils % 0.5; Eosinophils % 0.7; HGB 13.4 g/dL (11.2-15.7); Immature Grans % 0.6; Lymphocytes % 18.6; MCH 26.7 pg (27.0-33.0); MCHC 33.5 % (32.0-36.0); MCV 79.7 fL (80-95); MPV 9.3 fL (8.0-11.0); Monocytes % 6.6; Nucleated RBC 0 %; Platelet Count 331 10^3/uL (130-400); RBC 5.02 10^6/uL (3.93-5.22); RDW 13.7 % (11.7-14.6); RDW-SD 39.3 fL; WBC 10.74 10^3/uL (4.4-10.8)
[2021-01-22 13:22] LABS: ALT 43 U/L (14-59); AST 25 U/L (15-37); Albumin 3.6 g/dL (3.4-5.0); Alkaline Phosphatase 84 U/L (46-116); Anion Gap 13.7 mmol/L (3-11); BUN 6 mg/dL (7-18); Bilirubin, Total 0.6 mg/dL (0.2-1.0); CO2 21.3 mmol/L (21.0-32.0); CREATININE 0.8 mg/dL (0.55-1.02); Chloride 105 mmol/L (98-107); Glucose 92 mg/dL (74-106); Lipase 62 U/L (73-393); Potassium 3.3 mmol/L (3.5-5.1); Sodium 140 mmol/L (136-145); Total Protein 7.2 g/dL (6.4-8.2)
== END 2021-01-22 14:52 | disposition home or self-care (01) ==
PROVIDERS: Emergency Provider Registered Nurse Emergency; PCP Family Medicine
DX: O21.0 Mild hyperemesis gravidarum (principal); Z3A.01 Less than 8 weeks gestation of pregnancy; O99.891 Other specified diseases and conditions complicating pregnancy; R10.31 Right lower quadrant pain; O99.331 Smoking (tobacco) complicating pregnancy, first trimester; F17.210 Nicotine dependence, cigarettes, uncomplicated; O99.341 Other mental disorders complicating pregnancy, first trimester; F31.9 Bipolar disorder, unspecified
CPT/HCPCS: 36415; 80053; 83690; 96361; 96374; 99284; 76801; 81003; 84702; 85025; 99283; J2765

== ENCOUNTER 2021-01-23 12:46 | Emergency (ER) | payer MEDICAID, SELFPAY ==
[2021-01-23 12:52] VITALS: BP 119/79; PULSE 70; RESP 18; TEMP 37; O2SAT 99
--- NOTE | 2021-01-23 13:35 | W.ED.GENAD ---
Discharge Plan Disposition Patient Disposition: HOME Condition: Stable Discharge Details Clinical Impression: Primary Care Provider: Dorcas Castaneda ED Provider: Sunitha Carr Home Meds and New Rx's Prescriptions: No Action prenat.vits,alicia,arc-nxkb-rxasa Tablet 1 tab PO DAILY Qty: 90 RF: 3 ondansetron HCl [Zofran] 4 mg tablet 4 mg PO Q8H PRNQty: 10 RF: 0 risperidone 1 mg tablet 1 mg PO DAILY AM RF: 0 promethazine [Promethegan] 25 mg suppository 25 mg NH RF: 0 metoclopramide HCl [Reglan] 10 mg tablet 10 mg PO QACHS PRN (Reason: nausea and vomiting) Qty: 14 RF: 0 pyridoxine (vitamin B6) 25 mg tablet 25 mg PO BID 10 Days Qty: 20 RF: 0 hydroxyzine HCl 50 MG tablet 50 mg PO BID RF: 0 sertraline 100 mg tablet 100 mg PO HS RF: 0 Discharge Instructions Instructions: (ED) Additional Instructions: Please call the number below to help you find assistance. [facility] CALL: 08/12 HOTLINE: [phone] VISIT: [address] [place] [address] [address] [place] [address] [facility] [address] [place] [id number] Directions [phone] BOOK ONLINE Referrals: Dorcas Castaneda [Primary Care Provider] - 5 days Discharge Data Discharge Date/Time-TO BE ENTERED AT DEPARTURE: 01/23/21 13:42 Medical Decision Making 25-year-old female presents to the ER with chief complaint of requesting . Patient was seen here yesterday and evaluated by myself for vomiting and abdominal pain. Patient did have an ultrasound yesterday and was determined to be 7 weeks 2 days. Patient is here requesting an . She reports that she has called and is not having success having a follow-up appointment. I did encourage her to follow-up with [facility], [facility] or [facility]. Patient verbalized understanding. She has no medical complaints denies any vomiting, abdominal pain or vaginal bleeding or discharge. Patient reports that she is safe at home has no suicidal ideations or homicidal ideations or any intent to harm herself. Discussed options with patient. Given information and contact information for [facility] and [facility]. Also instructed to follow-up with women's wellness to receive options there. Patient verbalized understanding discharge with instructions. This text was generated using [employer] system, please disregard any oddities of phrase or misspellings. HPI General Mode of arrival: ambulatory. Date/Time Provider Initiated Documentation: 01/23/21 13:00. Limitations to Documentation: no limitations. Information obtained by: patient. HPI Narrative: 25-year-old female presents to the ER with chief complaint of requesting . Patient was seen here yesterday and evaluated by myself for vomiting and abdominal pain. Patient did have an ultrasound yesterday and was determined to be 7 weeks 2 days. Patient is here requesting an . She reports that she has called and is not having success having a follow-up appointment. I did encourage her to follow-up with women[facility] wellness, [facility] or [facility]. Patient verbalized understanding. She has no medical complaints denies any vomiting, abdominal pain or vaginal bleeding or discharge. Patient reports that she is safe at home has no suicidal ideations or homicidal ideations or any intent to harm herself. Related Data Home Medications Medication Instructions Recorded Confirmed hydroxyzine HCl 50 mg PO BID 08/22/17 01/23/21 sertraline 100 mg tablet 100 mg PO HS tab 05/05/19 01/23/21 prenat.vits,alicia,htn-jdae-lunxy 1 tab PO DAILY #90 tab 05/23/19 01/23/21 ondansetron HCl [Zofran] 4 mg PO Q8H PRN #10 tab 01/19/21 01/23/21 metoclopramide HCl [Reglan] 10 mg PO QACHS PRN #14 tab 01/22/21 01/23/21 promethazine [Promethegan] 25 mg NH 01/22/21 pyridoxine (vitamin B6) 25 mg PO BID 10 Days #20 tab 01/22/21 01/23/21 risperidone 1 mg PO DAILY AM 01/22/21 01/23/21 Previous Rx's Medication Instructions Recorded prenat.vits,alicia,tvl-tzez-jqqcz 1 tab PO DAILY #90 tab 05/23/19 ondansetron HCl [Zofran] 4 mg PO Q8H PRN #10 tab 01/19/21 metoclopramide HCl [Reglan] 10 mg PO QACHS PRN #14 tab 01/22/21 pyridoxine (vitamin B6) 25 mg PO BID 10 Days #20 tab 01/22/21 Allergies Allergy/AdvReac Type Severity Reaction Status Date / Time bee venom protein (honey bee) Allergy Severe Verified 01/23/21 13:01 ziprasidone [From Geodon] AdvReac Verified 01/23/21 13:01 bug spray Allergy Intermediate Hives Uncoded 01/23/21 13:01 General Stated Complaint: CLINICAL TRIAL HEAD SUJATA: 3 Review of Systems Narrative: Patient here for an undesired All systems reviewed & are unremarkable except as noted in HPI and below PFSH Medical History Anxiety disorder, unspecified Bipolar disorder, unspecified Trauma and stressor-related disorder Social History Smoking/Tobacco Use Status: Current-Occasional Tobacco Type: cigarettes Smoking packs per day: 0.5 Smoking cigarettes per day: 10.0 Tobacco: How many years used: 7 Quit status: considering quitting Smoking risk assessment performed?: Yes Alcohol Intake: current Alcohol Intake frequency: a few times a month Drug use: Daily Substance use type: marijuana Seatbelt use: always Do you feel safe at home: Yes Do you feel safe in your relationship?: Yes Female Reproductive History Menstrual control method: none History History 1 Para 1 Hx # Term Pregnancies 0 Multiple births 0 Hx # Pregnancies 0 Ectopic pregnancies 0 AB induced 0 Hx Number of Living Children 0 AB spontaneous 0 Past Pregnancies Del. Date GA/Weeks # Outcome Route Wgt Sex Labor Lgth Anesthesia Location Prov Complic 04/01/18 39 No Successful vaginal 3090.098 g Male anea mino walters Delivery Date: 04/01/18 precipitous labor< 3 hrs shoulder dystocia risk d/t BMI over 30 Niecy Jerome LPN Exam Narrative Exam Narrative: Constitutional: Alert and oriented x3. Appears stated age. Normal body habitus. Head: Normocephalic, no trauma. Eyes: Pupils PERRLA, Red reflex noted, EOM's intact. Eyelids symmetrical without lesions, discharge, or swelling. Chest: RRR, Normal S1, S2, distal pulses intact. Resp: Lungs clear to auscultation bilaterally, no wheezes, rales, or rhonchi. Musculoskeletal: Normal gait, 5/5 strength to all four extremities. Skin: No suspicious rashes or lesions. Capillary refill less than 2 sec. Neurologic: Cranial nerves II-XII intact. Alert and oriented x 3. DTR's intact. Hematologic/Lymphatic: No ecchymosis, no lymphadenopathy. Course Vital Signs Vital signs: Vital Signs Temperature 37 C 01/23/21 12:52 Pulse 70 01/23/21 12:52 Respiratory Rate 18 01/23/21 12:52 Blood Pressure 119/79 01/23/21 12:52 Pulse Oximetry 99 01/23/21 12:52 Temperature 37 C 01/23/21 12:52 Temperature Source Temporal Artery Scan 01/23/21 12:52 Pulse 70 01/23/21 12:52 Respiratory Rate 18 01/23/21 12:52 Respiratory Effort Non-Labored 01/23/21 13:00 Blood Pressure 119/79 01/23/21 12:52 Blood Pressure Position Sitting 01/23/21 12:52 Pulse Oximetry 99 01/23/21 12:52 Oxygen Delivery Method Room Air 01/23/21 12:52 Oxygen Flow Rate 0 01/23/21 12:52 Pain Level 0 01/23/21 12:52
== END 2021-01-23 13:42 | disposition home or self-care (01) ==
PROVIDERS: Emergency Provider Registered Nurse Emergency; PCP Family Medicine
DX: O26.891 Other specified pregnancy related conditions, first trimester (principal); Z3A.01 Less than 8 weeks gestation of pregnancy
CPT/HCPCS: 99281

== ENCOUNTER 2021-03-01 14:21 | Outpatient (CLI) | payer MEDICAID, SELFPAY ==
[2021-03-01 16:13] LABS: HCG Quant, Pregnancy < 1 mIU/mL (1-3)
== END 2021-03-01 14:22 | disposition home or self-care (01) ==
LOC: LBO 14:22
PROVIDERS: PCP Family Medicine; Visit Provider Obstetrics & Gynecology
DX: Z32.01 Encounter for pregnancy test, result positive (principal)
CPT/HCPCS: 36415; 84702

== ENCOUNTER 2021-03-19 17:08 | Outpatient (REF) | payer MEDICAID, SELFPAY ==
[2021-03-21 14:36] LABS: Chlamydia Result Negative (Negative); GC Result Negative (Negative)
== END 2021-03-19 17:09 | disposition home or self-care (01) ==
LOC: LBN 17:08
PROVIDERS: PCP Family Medicine; Visit Provider Obstetrics & Gynecology
DX: Z11.3 Encounter for screening for infections with a predominantly sexual mode of transmission (principal)
CPT/HCPCS: 87491; 87591

== ENCOUNTER 2021-04-15 19:17 | Outpatient (REF) | payer MEDICAID, SELFPAY ==
[2021-04-17 14:14] LABS: Chlamydia Result Negative (Negative); GC Result Negative (Negative)
== END 2021-04-15 19:18 | disposition home or self-care (01) ==
LOC: LBN 19:17
PROVIDERS: PCP Family Medicine; Visit Provider Obstetrics & Gynecology
DX: Z11.3 Encounter for screening for infections with a predominantly sexual mode of transmission (principal)
CPT/HCPCS: 87491; 87591

== ENCOUNTER 2021-05-01 20:27 | Emergency (ER) | payer MEDICAID, SELFPAY ==
[2021-05-01 20:31] VITALS: BP 128/86; PULSE 96; RESP 18; TEMP 36.5; O2SAT 96
[2021-05-01 20:51] LABS: Bilirubin Negative (Negative); Blood Large (Negative); Clarity Cloudy (Clear); Glucose Negative (Negative); Ketones Negative (Negative); Leukocyte Esterase Small (Negative); Nitrite Negative (Negative); Specific Gravity >= 1.030 (1.005-1.025); Urobilinogen 0.2 EU/dL (Up TO 0.2)
[2021-05-01 20:59] LABS: C & S Indicated? No/Sq. Contamination; Epithelial Cells Many HPF (Negative)
--- NOTE | 2021-05-01 21:21 | ED.GENADUL_ITS ---
Discharge Plan Disposition Patient Disposition: HOME Condition: Stable Discharge Details Clinical Impression: Pelvic cramping, IUD surveillance Primary Care Provider: Dorcas Castaneda ED Provider: Ever Landis Home Meds and New Rx's Prescriptions: Continued ibuprofen 800 mg tablet 800 mg PO Q8H PRN (Reason: pain) Qty: 30 RF: 1 risperidone 1 mg tablet 1 mg PO DAILY AM RF: 0 hydroxyzine HCl 50 MG tablet 50 mg PO BID RF: 0 sertraline 100 mg tablet 100 mg PO HS RF: 0 Discharge Instructions Instructions: Pelvic Pain in Women (ED) Additional Instructions: Given that you received a Toradol injection in the emergency department please do not take any further ibuprofen until 6 AM or later tomorrow morning. You will need to call [facility] tomorrow morning for arrangement of appointment tomorrow to confirm placement of IUD or further removal/care. Please inform them that Dr. Aaron was contacted and stated to call the office for arrangement of appointment tomorrow. Pending your appointment tomorrow if you notice any severe pain or discomfort that becomes persistent or different, excessive vaginal bleeding or hemorrhaging, fever or chills return immediately to the emergency department for reevaluation. Referrals: [facility] [Provider Group] - 1 day Medical Decision Making Patient presents with Pelvic pain secondary to IUD placement 6 weeks ago. Their evaluation has not identified a emergent etiology for the abdominal pain. Specifically, given the very benign exam, urine that shows patient is not and is otherwise nondiagnostic, and lack of significant risk factors, I have a very low suspicion for appendicitis, ischemic bowel, bowel perforation, or any other life threatening disease. At this time I doubt pelvic inflammatory disease, tubal , or ovarian torsion. Given that patient is already been seen by GRAPHICS EDITOR for this complaint and missed her ultrasound that was scheduled for 5 days ago I contacted OB on-call. I spoke with Dr. Aaron and after discussion of patient's presentation along with symptoms, I agreed with her recommendation to have patient follow-up in the office tomorrow for in office ultrasound and further discussion of IUD versus other control. I have discussed with the patient the need to follow-up as noted on the discharge instructions, or return to the Emergency Department immediately if the pain worsens, develops fever, persistent and uncontrollable vomiting, or for any new symptoms or concerns. After discussion of diagnosis and plan of care patient has no further needs, questions, or concerns and states clear understanding to return to the emergency department for any worsening symptoms. Medical Records Medical records reviewed: Yes I reviewed the patient's medical records. Medical records narrative: Last GRAPHICS EDITOR note HPI General Mode of arrival: ambulatory . Date/Time Provider Initiated Documentation: 05/01/21 20:29 . Limitations to Documentation: no limitations . Information obtained by: patient . History of Present Illness 25 year old F presents to the emergency department with the chief complaint of Right-sided pelvic cramping after IUD placement, described as moderate, with intensity rated at 6. Quality is described as sharp and other (Cramping), and is localized to the pelvis. Patient reports no radiation. Patient started experiencing this week(s) (5) and it has been intermittent (3 times per day lasting 20min). No relieving factors improve symptom(s), No exacerbating factors reported . Patient notes no other symptoms.. Patient did receive the following treatments prior to arrival, NSAID (Last taken this am) Related Data Home Medications Medication Instructions Recorded Confirmed hydroxyzine HCl 50 mg PO BID 08/22/17 05/01/21 sertraline 100 mg tablet 100 mg PO HS tab 05/05/19 05/01/21 risperidone 1 mg PO DAILY AM 01/22/21 05/01/21 ibuprofen 800 mg tablet 800 mg PO Q8H PRN #30 tab 04/15/21 05/01/21 Previous Rx's Medication Instructions Recorded ibuprofen 800 mg tablet 800 mg PO Q8H PRN #30 tab 04/15/21 Allergies Allergy/AdvReac Type Severity Reaction Status Date / Time bee venom protein (honey bee) Allergy Severe Verified 05/01/21 20:33 ziprasidone [From Geodon] AdvReac Verified 05/01/21 20:33 bug spray Allergy Intermediate Hives Uncoded 05/01/21 20:33 General Stated Complaint: Abd Prob SUJATA: 3 Review of Systems Constitutional Constitutional: Denies fever(s) ENT Ears, Nose, Mouth, and Throat: Denies dizziness Cardiovascular Cardiovascular: Denies chest pain, Denies syncope and Denies dyspnea Respiratory Respiratory: Denies cough and Denies dyspnea Gastrointestinal Gastrointestinal: Reports as per HPI, Denies abdominal pain, Denies melena, Denies change in bowel habits, Denies constipation, Denies diarrhea and Denies vomiting Genitourinary Genitourinary: Reports as per HPI, Reports abnormal menses, Denies hematuria, Denies dysuria, Reports pelvic pain, Denies urinary incontinence, Denies urinary hesitancy, Denies urinary urgency, Denies vaginal discharge and Denies vaginal odor Integumentary/Breasts Skin/Breast: Denies rash Neurologic Neurologic: Denies dizziness and Denies syncope PFSH All Active Problems Pelvic cramping (Acute) IUD surveillance (Acute) Contraceptive management (Acute) Problem related to housing and economic circumstances (Acute) Trauma and stressor-related disorder (Acute) Bipolar disorder, unspecified (Acute) Anxiety disorder, unspecified (Acute) Social History Smoking/Tobacco Use Status: Current every day Tobacco Type: cigarettes Smoking packs per day: 0.5 Smoking cigarettes per day: 10.0 Tobacco: How many years used: 7 Quit status: considering quitting Smoking risk assessment performed?: Yes Alcohol Intake: current Alcohol Intake frequency: a few times a month Drug use: Daily Substance use type: marijuana Seatbelt use: always Do you feel safe at home: Yes Do you feel safe in your relationship?: Yes Female Reproductive History Menstrual control method: none History History 1 Para 1 Hx # Term Pregnancies 0 Multiple births 0 Hx # Pregnancies 0 Ectopic pregnancies 0 AB induced 0 Hx Number of Living Children 0 AB spontaneous 0 Past Pregnancies Del. Date GA/Weeks # Outcome Route Wgt Sex Labor Lgth Anesthes ia Location Prov Complic 04/01/18 39 No Successful vaginal 3090.098 g Male mica morrismino pérez Delivery Date: 04/01/18 precipitous labor< 3 hrs shoulder dystocia risk d/t BMI over 30 Niecy Jerome LPN Exam Const General: cooperative Orientation: alert, awake and oriented x3 Resp Effort & Inspection: normal respiratory effort and able to speak in complete sentences Auscultation: clear to auscultation bilaterally Cardio Rate: regular rate Rhythm: regular rhythm Heart Sounds: S1 normal and S2 normal GI Palpation: soft, no hepatosplenomegaly, not firm, no guarding, no masses, no pulsatile masses, not rigid, no splenomegaly and tender in the RLQ (with deep palpation ); not at McBurney's point, with no rebound tenderness and Rovsing's sign negative Auscultation: normal bowel sounds Back/Spine/Pelvis Back: no CVA tenderness Neuro General: patient alert, patient awake, patient oriented x3, gait normal and moves all extremities Course Vital Signs Vital signs: Vital Signs Temperature 36.5 C 05/01/21 20:31 Pulse 96 H 05/01/21 20:31 Respiratory Rate 18 05/01/21 20:31 Blood Pressure 128/86 05/01/21 20:31 Pulse Oximetry 96 05/01/21 20:31 Temperature 36.5 C 05/01/21 20:31 Temperature Source Temporal Artery Scan 05/01/21 20:31 Pulse 96 H 05/01/21 20:31 Respiratory Rate 18 05/01/21 20:31 Respiratory Effort Non-Labored 05/01/21 20:34 Blood Pressure 128/86 05/01/21 20:31 Pulse Oximetry 96 05/01/21 20:31 Oxygen Delivery Method Room Air 05/01/21 20:31 Oxygen Flow Rate 0 05/01/21 20:31 Pain Level 8 05/01/21 20:34 Lab/Test Results Lab/Test Results: Laboratory Tests Range/Units 05/01/21 20:39 Urine Color (Yellow) Yellow Urine Clarity (Clear) Cloudy Urine pH (5-8) 7.0 Ur Specific [place] (1.005-1.025) >= 1.030 H Urine Protein (Negative) mg/dL Trace H Urine Ketones (Negative) mg/dL Negative Urine Blood (Negative) Large H Urine Nitrite (Negative) Negative Urine Bilirubin (Negative) Negative Urine Urobilinogen (Up TO 0.2) EU/dL 0.2 Ur Leukocyte Esterase (Negative) Small H Urine RBC Not Applicable Urine WBC (0-5) HPF Ur Epithelial Cells (Negative) HPF Many Urine Crystals Not Applicable Urine Bacteria (Negative) HPF Urine Mucus Not Applicable Ur Culture Indicated? No/Sq. Contamination Urine Glucose (Negative) mg/dL Negative POC- Test(urine) Negative
[2021-05-01 21:35] VITALS: BP 128/86; PULSE 96; RESP 18; TEMP 36.5; O2SAT 96
[2021-05-01] MEDS: Ketorolac 15 MG/ML VIAL IM (21:35)
== END 2021-05-01 21:35 | disposition home or self-care (01) ==
PROVIDERS: Emergency Provider Nurse Practitioner Family; PCP Family Medicine
DX: R10.2 Pelvic and perineal pain (principal); Z97.5 Presence of (intrauterine) contraceptive device
CPT/HCPCS: 81025; 96372; 99284; 81003; 81015; 99283; J1885

== ENCOUNTER 2021-08-28 15:31 | Emergency (ER) | payer MEDICAID, SELFPAY ==
[2021-08-28] VITALS (20 sets, daily range): BP systolic 100–139; BP diastolic 49–83; PULSE 47–104; RESP 12–37; TEMP 36.3; O2SAT 97–100
--- NOTE | 2021-08-28 15:30 | RT.EKG_ITS ---
APPROVED REPORT Exam: Resting ECG Reason for Exam: sob Patient Location: E HR:73 bpm ECG Measurements Heart Rate 73 AXIS CO 119 P 36 QRSd 80 QRS 61 QT 400 T 43 QTc 440 Conclusion Sinus rhythm...normal P axis, V-rate 60- 99
--- NOTE | 2021-08-28 15:57 | ED.GENADUL_ITS ---
Discharge Plan Disposition Patient Disposition: HOME Condition: Improving Discharge Details Clinical Impression: Vomiting Primary Care Provider: Dorcas Castaneda ED Provider: Geremias Wooten Home Meds and New Rx's Prescriptions: New pantoprazole [Protonix] 20 mg tablet,delayed release (DR/EC) 20 mg PO DAILY Qty: 30 0RF Rx Instructions: may substitute similar ondansetron 4 mg tablet,disintegrating 4 mg PO Q8H PRN (Reason: nausea and vomiting) Qty: 10 0RF Continued ibuprofen 800 mg tablet 800 mg PO Q8H PRN (Reason: pain) Qty: 30 1RF risperidone 1 mg tablet 1 mg PO DAILY AM 0RF Label Comments: TAKE 1 TABLET BY MOUTH TWICE DAILY hydroxyzine HCl 50 MG tablet 50 mg PO BID 0RF sertraline 100 mg tablet 100 mg PO HS 0RF Label Comments: changed to lamotrigine citalopram [Celexa] 20 mg tablet 20 mg PO DAILY 0RF Label Comments: Take 1 tablet by mouth once a day No Action lamotrigine 25 mg tablet 25 mg PO DAILY 0RF Discharge Instructions Additional Instructions: Home to rest today. Small, frequent sips of fluids to maintain hydration. I recommend you stop your Lamictal. May use Zofran as prescribed, as needed for persistent nausea. Follow-up with regular doctor for recheck if not improved in 2 to 3 days time. Medical Decision Making 25-year-old female presents from home with her boyfriend. She has been started recently on Lamictal, 3 doses ago, for mood disorder. She developed nausea and vomiting that is worsened by eating and also after taking today's medication. She has not had a fever. No blood in the emesis. Denies vaginal bleeding or discharge. She has had normal bowel movements. No known sick contacts and no recent travel. Her vital signs are stable, exam reveals a actively vomiting patient, but with a soft abdomen but does not demonstrate particular tenderness. Patient IV access established, fluids and antiemetic initiated. Screening labs and screening EKG obtained. Patient symptoms may be secondary to initiation of Lamictal, as they are within the side effect profile. Must exclude other etiology as well. Laboratories reveal an elevated white blood cell count of 15, likely due to stress demargination. Hematocrit 45, platelets 382. Sodium 140, potassium 3.8, chloride 107, bicarb 18 with a gap of 15, BUN 10, creatinine 1.0, glucose 124, LFTs unremarkable. Patient with good improvement of her symptoms following parenteral medications and fluids. She requested to take a trial by mouth, was successful. I will place her on a antacid and Zofran as needed. She is stable and improving. She will stop her Lamictal. Lab Data Lab results reviewed: Yes I reviewed the patient's lab results. HPI General Mode of arrival: ambulatory . Date/Time Provider Initiated Documentation: 08/28/21 15:33 . Limitations to Documentation: no limitations . Information obtained by: patient and family . History of Present Illness 25 year old F presents to the emergency department with the chief complaint of Nausea and vomiting since yesterday, described as moderate, and is localized to the abdomen. Patient reports no radiation. Patient started experiencing this hour(s) and it has been intermittent. improves with No relieving factors improve symptom(s), Eating worsens symptoms and Medication worsens symptoms . Patient notes denies fever/chills, headaches and syncope. Patient did receive the following treatments prior to arrival, none Related Data Home Medications Medication Instructions Recorded Confirmed hydroxyzine HCl 50 mg tablet 50 mg PO BID 08/22/17 08/28/21 sertraline 100 mg tablet 100 mg PO HS tab 05/05/19 05/01/21 risperidone 1 mg tablet 1 mg PO DAILY AM 01/22/21 08/28/21 ibuprofen 800 mg tablet 800 mg PO Q8H PRN #30 tab 04/15/21 08/28/21 citalopram 20 mg tablet (Celexa) 20 mg PO DAILY 08/28/21 08/28/21 lamotrigine 25 mg tablet 25 mg PO DAILY 08/28/21 08/28/21 ondansetron 4 mg disintegrating 4 mg PO Q8H PRN #10 tab 08/28/21 tablet pantoprazole 20 mg tablet,delayed 20 mg PO DAILY #30 tab 08/28/21 release (Protonix) Previous Rx's Medication Instructions Recorded ibuprofen 800 mg tablet 800 mg PO Q8H PRN #30 tab 04/15/21 ondansetron 4 mg disintegrating 4 mg PO Q8H PRN #10 tab 08/28/21 tablet pantoprazole 20 mg tablet,delayed 20 mg PO DAILY #30 tab 08/28/21 release (Protonix) Allergies Allergy/AdvReac Type Severity Reaction Status Date / Time bee venom protein (honey bee) Allergy Severe Verified 08/28/21 15:45 ziprasidone [From Geodon] AdvReac Verified 08/28/21 15:45 bug spray Allergy Intermediate Hives Uncoded 08/28/21 15:45 General Stated Complaint: Nausea/Vomit/Diar SUJATA: 2 Review of Systems Narrative: No fever. Started Lamictal at the same time the symptoms began. Denies thoughts of harming herself or others. She has otherwise recently been well. 8 systems reviewed and otherwise negative. PFSH All Active Problems (Updated 08/28/21 @ 17:23 by Geremias Wooten MD) Pelvic cramping (Acute) Vomiting (Acute) IUD surveillance (Acute) Contraceptive management (Acute) Problem related to housing and economic circumstances (Acute) Trauma and stressor-related disorder (Acute) Bipolar disorder, unspecified (Acute) Anxiety disorder, unspecified (Acute) Social History Smoking/Tobacco Use Status: Current every day Tobacco Type: cigarettes, e- cigarettes and smokeless tobacco Tobacco: How many years used: 7 Quit status: considering quitting Smoking risk assessment performed?: Yes Alcohol Intake: former Drug use: Daily Substance use type: marijuana Details: denies marijuana today Seatbelt use: always Do you feel safe at home: Yes Do you feel safe in your relationship?: Yes Female Reproductive History Menstrual control method: none History History 1 Para 1 Hx # Term Pregnancies 0 Multiple births 0 Hx # Pregnancies 0 Ectopic pregnancies 0 AB induced 0 Hx Number of Living Children 0 AB spontaneous 0 Past Pregnancies Del. Date GA/Weeks # Outcome Route Wgt Sex Labor Lgth Anesthes ia Location Prov [facility] 04/01/18 39 No Successful vaginal 3090.098 g Male nikkiamanda mino walters Delivery Date: 04/01/18 Last Updated by: Niecy Jerome LPN precipitous labor< 3 hrs shoulder dystocia risk d/t BMI over 30 Exam Narrative Exam Narrative: GEN: awake, alert, oriented 3. Pleasant, vomiting intermittently, interactive. HEAD: Normocephalic, atraumatic ENT: Mucous membranes dry, oropharynx unremarkable, External ear exam unremarkable EYES: PERRL, EOMI NECK: Full ROM, no MORRO, no menigismus CHEST/RESP: Nontender, clear to auscultation bilateral, no wheeze/rhonchi/rales CARDIOVASCULAR: RRR, no murmur, rub wanda. 2+ Rad pulse bilateral ABDOMEN: Soft, nontender, no mass. +Bowel sounds EXT: Full ROM, no edema, no rash Neuro: Grossly normal neurologic exam, conversant, interactive. Psych: Speech fluent, thoughts congruent, affect normal Course Vital Signs Vital signs: Vital Signs Temperature 36.3 C L 08/28/21 15:41 Pulse 66 08/28/21 15:41 Respiratory Rate 22 08/28/21 15:41 Blood Pressure 129/83 08/28/21 15:41 Pulse Oximetry 99 08/28/21 15:41 Temperature 36.3 C L 08/28/21 15:41 Temperature Source Oral 08/28/21 15:41 Pulse 66 08/28/21 15:41 Respiratory Rate 22 08/28/21 15:41 Blood Pressure 129/83 08/28/21 15:41 Pulse Oximetry 99 08/28/21 15:41 Oxygen Delivery Method Room Air 08/28/21 15:41 Oxygen Flow Rate 0 08/28/21 15:41 Pain Level 0 08/28/21 15:41
[2021-08-28] MEDS: Normal Saline 1,000 ML 1000 ML IV (16:20)
[2021-08-28] MEDS: Ondansetron 4 MG/2 ML VIAL IVP (16:22)
[2021-08-28] MEDS: LORazepam 2 MG/ML VIAL 1 MG IVP (16:24)
[2021-08-28 16:29] LABS: Abs Immature Grans 0.06 10^3/uL (0.0-0.06); Absolute Eosinophil Count 0.17 10^3/uL (0.0-0.7); Absolute Lymphocyte Count 2.56 10^3/uL (1.2-3.4); Absolute Monocyte Count 0.71 10^3/uL (0.1-0.8); Basophils % 0.5; Eosinophils % 1.1; HCT 45.5 % (36.0-46.0); Immature Grans % 0.4; Lymphocytes % 16.6; MCH 26.5 pg (27.0-33.0); MCV 80.5 fL (80-95); MPV 9.5 fL (8.0-11.0); Monocytes % 4.6; Neutrophils % 76.8; Nucleated RBC 0 %; Platelet Count 382 10^3/uL (130-400); RBC 5.65 10^6/uL (3.93-5.22); RDW 13.8 % (11.7-14.6); RDW-SD 40.8 fL; WBC 15.45 10^3/uL (4.4-10.8)
[2021-08-28 16:30] LABS: Absolute Basophil Count 0.08 10^3/uL (0.0-0.2); Absolute Neutrophil Count 11.87 10^3/uL (1.2-6.7)
[2021-08-28 16:43] LABS: ALT 20 U/L (14-59); AST 17 U/L (15-37); Albumin 4.2 g/dL (3.4-5.0); Alkaline Phosphatase 113 U/L (46-116); BUN 10 mg/dL (7-18); Bilirubin, Total 0.6 mg/dL (0.2-1.0); Calcium 9.6 mg/dL (8.5-10.1); Chloride 107 mmol/L (98-107); Glucose 124 mg/dL (74-106); Magnesium 2.1 mg/dL (1.8-2.4); Potassium 3.8 mmol/L (3.5-5.1); Sodium 140 mmol/L (136-145); Total Protein 7.9 g/dL (6.4-8.2)
[2021-08-28] MEDS: Ondansetron O.D.T. 4 MG TABEF, 3 TABS/BTL PO (17:30)
[2021-08-28] MEDS: Ketorolac 15 MG/ML VIAL IVP (17:31)
== END 2021-08-28 17:40 | disposition home or self-care (01) ==
PROVIDERS: Emergency Provider Emergency Medicine; PCP Family Medicine
DX: R11.2 Nausea with vomiting, unspecified (principal); R06.02 Shortness of breath
CPT/HCPCS: 36415; 80053; 93005; 96361; 96374; 96375; 99284; 83735; 85025; 93010; J1885; J2060; J2405

== ENCOUNTER 2021-12-21 16:55 | Emergency (ER) | payer MEDICAID, SELFPAY ==
--- NOTE | 2021-12-21 17:26 | NUR.NOTE ---
Nursing Note: Patient not in waiting room when called.
== END 2021-12-21 17:25 | disposition left before discharge ==
PROVIDERS: Emergency Provider Emergency Medicine; PCP Family Medicine
DX: Z53.21 Procedure and treatment not carried out due to patient leaving prior to being seen by health care provider (principal)

== ENCOUNTER 2022-04-11 11:28 | Emergency (ER) | payer MEDICAID, SELFPAY ==
[2022-04-11 11:51] VITALS: BP 127/73; PULSE 78; RESP 14; TEMP 37.6; O2SAT 97
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
[2022-04-11 13:18] LABS: Bilirubin Small (Negative); Blood Large (Negative); Clarity Sl Cloudy (Clear); Glucose Negative (Negative); Ketones Trace mg/dL (Negative); Leukocyte Esterase Trace (Negative); Nitrite Negative (Negative); Specific Gravity 1.025 (1.005-1.025); Urobilinogen 0.2 EU/dL (Up TO 0.2); pH 6.5 (5-8)
[2022-04-11 13:28] VITALS: RESP 18
[2022-04-11 13:29] LABS: Bacteria Few HPF (Negative); C & S Indicated? No/Sq. Contamination; Casts Negative LPF (Negative); Crystals Few Amorphous HPF (Negative); Epithelial Cells Many HPF (Negative); Mucus Heavy (Negative); RBC 20-50 HPF (0-2)
[2022-04-11 13:29] LABS: HGB 13.3 g/dL (11.2-15.7); MCHC 32.4 % (32.0-36.0); MCV 83 fL (80-95); MPV 9.1 fL (8.0-11.0); Platelet Count 339 10^3/uL (130-400); RBC 4.92 10^6/uL (3.93-5.22); RDW 15.2 % (11.7-14.6); RDW-SD 46.3 fL; WBC 10.52 10^3/uL (4.4-10.8)
[2022-04-11 13:48] LABS: ALT 13 U/L (14-59); AST 14 U/L (15-37); Albumin 3.8 g/dL (3.4-5.0); Alkaline Phosphatase 79 U/L (46-116); Anion Gap 7.8 mmol/L (3-11); BUN 12 mg/dL (7-18); Bilirubin, Total 0.5 mg/dL (0.2-1.0); CO2 26.2 mmol/L (21.0-32.0); CREATININE 0.8 mg/dL (0.55-1.02); Calcium 9.2 mg/dL (8.5-10.1); Chloride 103 mmol/L (98-107); Estimated GFR 105.45 (mL/min/1.73m2); Glucose 107 mg/dL (74-106); Potassium 3.8 mmol/L (3.5-5.1); Sodium 137 mmol/L (136-145); Total Protein 7.6 g/dL (6.4-8.2)
--- NOTE | 2022-04-11 15:37 | ED.PROG_ITS ---
Date of service: 04/11/22 Time of Service: 15:37 Medical Decision Making Care was signed out to me by Dr. Stovall at 1515. Patient has had medical screening exam and has been medically cleared for discharge. Plan at signout was to await for completion of investment recovery technician consultation and discharge the patient with outpatient follow-up. I spoke with investment recovery technician who had evaluated the patient. Plan will be for outpatient follow-up with [facility]. Patient is not a candidate for Suboxone and not interested in seeking treatment at [facility]. Sign Out No Sign Out Sign Out Data: Sign Out Comment: Patient is being signed out to Dr. Corky Durán. At this time patient is awaiting an evaluation for substance abuse. She was seen and cleared by mental health. Last updated by Shon Stovall MD at 04/11/22 15:20 Discharge Plan Disposition Patient Disposition: Home Condition: Stable Discharge Details Clinical Impression: Polysubstance abuse Primary Care Provider: Dorcas Castaneda ED Provider: Shon Stovall Home Meds and New Rx's Prescriptions: Continued ibuprofen 800 mg tablet 800 mg PO Q8H PRN (Reason: pain) Qty: 30 1RF risperidone 1 mg tablet 1 mg PO BID Label Comments: TAKE 1 TABLET BY MOUTH TWICE DAILY hydroxyzine HCl 50 MG tablet 50 mg PO BID sertraline 100 mg tablet 100 mg PO HS Label Comments: changed to lamotrigine citalopram [Celexa] 20 mg tablet 20 mg PO DAILY Label Comments: Take 1 tablet by mouth once a day pantoprazole [Protonix] 20 mg tablet,delayed release (DR/EC) 20 mg PO DAILY Qty: 30 0RF Rx Instructions: may substitute similar ondansetron 4 mg tablet,disintegrating 4 mg PO Q8H PRN (Reason: nausea and vomiting) Qty: 10 0RF Discharge Instructions Additional Instructions: Please contact your primary care physician to arrange follow-up. Please follow-up with [facility]. Naloxone was provided and should be used per instructions in case of an accidental opioid overdose. Return to the ER immediately for any worsening or new concerning symptoms. Referrals: [facility] [Outside] Dorcas Castaneda [Primary Care Provider] -
== END 2022-04-11 15:53 | disposition home or self-care (01) ==
PROVIDERS: Emergency Medicine; Emergency Provider Student in an Organized Health Care Education/Training Program; PCP Family Medicine
DX: F19.10 Other psychoactive substance abuse, uncomplicated (principal)
CPT/HCPCS: 36415; 80053; 81025; 85027; 96361; 96372; 96374; 99284; 81003; 81015

== ENCOUNTER 2022-06-08 11:58 | Emergency (ER) | payer MEDICAID, SELFPAY ==
[2022-06-08 12:19] VITALS: BP 116/72; PULSE 90; RESP 18; TEMP 36.8; O2SAT 100
--- NOTE | 2022-06-08 13:00 | DI.RAD_ITS ---
Exam(s) XR SHOULDER RT COMPLETE 2+V EXAM: XR SHOULDER RT COMPLETE 2+V CLINICAL HISTORY: pain anterior, injury yesterday. TECHNIQUE: 2D digital imaging was performed. COMPARISON: No exams were available for comparison FINDINGS: Five views: There is no evidence ofv fracture or dislocation or abnormal soft tissue calcifications. Subacromial space is not diminished. Both the glenohumeral and AC joints appear unremarkable. Coracoid process is intact. Clavicle intact. Bone density normal. No osseous lesions. IMPRESSION: No significant osseous findings in the shoulder. DATA REPOSITORY: RADIATION DOSE DELIVERED:
[2022-06-08] MEDS: Ibuprofen 600 MG TAB PO (13:10)
--- NOTE | 2022-06-08 13:50 | DI.VRAD_ITS ---
PROCEDURE INFORMATION: Exam: XR Right Shoulder Exam date and time: 06/08/2022 1:25 PM Age: 26 years old Clinical indication: Injury or trauma; Other: Posterior pain. Pushing injury yesterday; Other: Anterior pain TECHNIQUE: Imaging protocol: Radiologic exam of the Right shoulder. Views: 2 or more views. COMPARISON: CT NECK WITH CONTRAST 11/18/2016 4:02 PM FINDINGS: Bones/joints: Normal. Soft tissues: Normal. IMPRESSION: No acute findings. Dictated and Authenticated by: Enoc Galeas MD. Ordering:MAN Fried MD
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
[2022-06-08 14:05] VITALS: BP 109/70; PULSE 60; RESP 17; O2SAT 99
== END 2022-06-08 14:05 | disposition home or self-care (01) ==
PROVIDERS: Emergency Provider Student in an Organized Health Care Education/Training Program; PCP Family Medicine
DX: S43.401A Unspecified sprain of right shoulder joint, initial encounter (principal); W22.8XXA Striking against or struck by other objects, initial encounter; X50.0XXA Overexertion from strenuous movement or load, initial encounter
CPT/HCPCS: 81025; 99283; 73030; 99282

== ENCOUNTER 2022-07-09 14:57 | Outpatient (CLI) | payer MEDICAID, SELFPAY | END 2022-07-09 14:58 | disposition home or self-care (01) | LOC: LBO 14:59 → LBN 16:49 | PROVIDERS: PCP Family Medicine; Visit Provider Nurse Practitioner Women's Health | DX: N76.0 Acute vaginitis (principal) | CPT/HCPCS: 87480; 87510; 87660 ==

== ENCOUNTER 2022-08-19 02:14 | Outpatient (CLI) | payer MEDICAID, SELFPAY ==
--- NOTE | 2022-08-19 08:00 | DI.US_ITS ---
Exam(s) US ABDOMEN EXAM: US ABDOMEN CLINICAL HISTORY: ? cholelithiasis,abd pain, r10.9 TECHNIQUE: Ultrasound abdomen performed using standard protocol. COMPARISON: CT ABD PELVIS WITH CONTRAST from 11/04/2015 FINDINGS: LIVER: Normal size and echogenicity. 1 centimeter homogeneous hyperechoic focus consistent with a he mangioma. GALLBLADDER: No evidence of cholelithiasis. No evidence of wall thickening. No pericholecystic fluid identified. CORDERO'S SIGN: Negative. BILIARY SYSTEM: No intrahepatic or extrahepatic biliary ductal dilation. KIDNEYS: Kidneys are symmetric in size. No evidence of renal calculi. No evidence of hydronephrosis. No renal mass or cyst identified. PANCREAS: Normal where visualized. SPLEEN: Not enlarged. ABDOMINAL AORTA AND IVC: Visualized portions normal caliber. ASCITES: None seen. IMPRESSION: No evidence of cholelithiasis. DATA REPOSITORY:
== END 2022-08-19 02:34 ==
LOC: DI 02:15
PROVIDERS: PCP Family Medicine; Visit Provider Surgery
DX: R10.9 Unspecified abdominal pain (principal); K76.89 Other specified diseases of liver
CPT/HCPCS: 76700

== ENCOUNTER 2023-07-09 15:12 | Outpatient (CLI) | payer MEDICAID, SELFPAY ==
[2023-07-09 15:29] LABS: HCG Quant, Pregnancy 14 mIU/mL (1-3)
== END 2023-07-09 15:13 | disposition home or self-care (01) ==
LOC: LBO 15:14
PROVIDERS: PCP Nurse Practitioner; Visit Provider Obstetrics & Gynecology
DX: Z32.01 Encounter for pregnancy test, result positive (principal)
CPT/HCPCS: 36415; 84702

== ENCOUNTER 2023-08-11 13:25 | Outpatient (CLI) | payer MEDICAID, SELFPAY ==
[2023-08-11 14:03] LABS: HCG Quant, Pregnancy 7 mIU/mL (1-3)
== END 2023-08-11 13:26 | disposition home or self-care (01) ==
LOC: LBO 13:25
PROVIDERS: PCP Nurse Practitioner; Visit Provider Obstetrics & Gynecology
DX: O20.0 Threatened abortion (principal)
CPT/HCPCS: 36415; 84702

== ENCOUNTER 2023-11-01 12:22 | Emergency (ER) | payer MEDICAID, SELFPAY ==
--- NOTE | 2023-11-01 12:15 | DI.RAD_ITS ---
Exam(s) XR ANKLE RT COMPLETE EXAM: XR ANKLE RT COMPLETE CLINICAL HISTORY: Right ankle pain. TECHNIQUE: 2D digital imaging was performed of the right ankle. Three images were obtained. AP, la teral and oblique views were obtained. COMPARISON: CR XR ANKLE RT COMPLETE from 02/27/2020 FINDINGS: BONES: No acute fracture is present. No bony destructive lesion is seen. There is now small protrusi on at the medial aspect of the medial malleolus which was not present on the examination from 020. JOINTS: The ankle mortise is normally aligned. SOFT TISSUE: Normal. IMPRESSION: Small beak like protrusion at the medial aspect of the medial malleolus not present on the prior exam ination from 2019. There is no associated soft tissue swelling. This may be the result of an old he aled fracture or other benign process should be considered. An acute fracture cannot be entirely exc luded. Please correlate with the patient's site of pain. If further imaging is warranted, CT scan o f the ankle may be obtained. DATA REPOSITORY: RADIATION DOSE DELIVERED:
[2023-11-01 12:25] VITALS: BP 131/76; PULSE 89; RESP 15; O2SAT 98
--- NOTE | 2023-11-01 12:30 | ED.GENADUL_ITS ---
Discharge Plan Disposition Patient Disposition: Home Discharge Details Clinical Impression: Right ankle sprain Primary Care Provider: Goldie Chatterjee ED Provider: Tim Mata Home Meds and New Rx's Prescriptions: Continued lithium carbonate 150 mg capsule 300 mg PO BID trazodone 50 mg tablet 100 mg PO BID fluoxetine 20 mg capsule 20 mg PO BID buspirone 7.5 mg tablet 15 mg PO BID hydroxyzine pamoate [Vistaril] 25 mg capsule 100 mg PO BID psyllium husk [Metamucil] 0.4 gram capsule 1.2 g PO DAILY Qty: 90 12RF polyethylene glycol 3350 [Miralax] 17 gram/dose powder 17 g PO DAILY PRN (Reason: constipation) Qty: 238 6RF Rx Instructions: Take as needed as a rescue agent. Do not rely on for daily constipation olanzapine 5 mg tablet 5 mg PO BID Patient Comments: TAKE 1 TABLET BY MOUTH EVERY NIGHT AT BEDTIME AND TAKE 1 TABLET DAILY NEEDED FOR ANXIETY Discharge Instructions Instructions: Ankle Sprain ED Additional Instructions: You were seen in the emergency department for your ankle pain. X-ray showed no sign of any fractures. You may bear weight on your right lower extremity. Please wear this lace up ankle brace. Please return to the emergency department if you develop worsening pain swelling or cannot move your toes. Please follow-up as needed with your primary care provider. For your pain please take medications as follows: 1. Take acetaminophen (Tylenol), 1,000 mg (two 500 mg tabs) every 6 hours [2. Take ibuprofen (Advil), 400 mg every 6 hours.] Discharge Data Discharge Date/Time-TO BE ENTERED AT DEPARTURE: 11/01/23 14:27 HPI General Date/Time Provider Initiated Documentation: 11/01/23 12:29 . HPI Narrative: MDM This is an overall well-appearing normothermic and not tachycardic 28-year-old female with right ankle pain swelling negative x-rays most consistent with ankle sprain. Radiology was concerned about the possibility of disruption in the cortex of the medial malleolus. I was in touch with Dr. Martin from orthopedics who had also reviewed the patient's films and did not see anything acutely traumatic. Patient did not have any significant medial malleolor pain and her pain was primarily in the lateral malleolus. I did treat her with a lace up ankle brace made weightbearing as tolerated. No proximal tibial tenderness to suggest Maisonneuve injury. No midfoot instability to suggest Lisfranc fracture. No lateral foot tenderness to suggest Maravilla fracture. I offered her crutches but she declined. I advise ED return for worsening pain fevers or any significant swelling. She understood her return indications and was discharged with empiric trial of expectant outpatient management. I considered septic joint however the patient has not had fevers and has ability to actively and passively dorsi and plantarflexion of the foot. Her right foot is warm well-perfused so not concern for critical limb ischemia. She has no history of diabetes and I see no signs of any foot ulcers. No pain out of proportion to suggest necrotizing soft tissue infection. No rash to flank to suggest zoster. No preceding chest pain nor syncope so did not obtain ECG. No shortness of breath to suggest PE. She did not hit her head so did not feel that she required a CT head. No trauma to the chest so doubt pneumothorax. HPI This is a 28-year-old female arrived to the emergency department via private vehicle in the setting of right ankle and foot pain. Patient reports that yesterday evening she missed the last 2 steps and fell down. She inverted her right ankle and has pain on the lateral side of her right ankle. She had no preceding chest pain or shortness of breath. No syncope. She did not hit her head. She is not feeling short of breath and she did not strike her chest. No other complaints. She has been ambulatory since her injury. Exam General: Well-appearing in no acute distress speaking in complete sentences. Head: Normocephalic, atraumatic. Eye: Extraocular eye movements intact. No conjunctival injection. No scleral icterus. Ear, nose, mouth, throat: Grossly normal inspection. Normal voice, handling secretions normally. Neck: Trachea midline. Cardiovascular: Well-perfused distal extremities. Respiratory: Nonlabored respiration. Gastrointestinal: Nondistended abdomen. Musculoskeletal: Right lateral malleolus mildly tender on ankle. Patient is able to dorsi and plantarflex with 3 out of 5 strength on her right foot limited secondarily by pain. She has 2+ PT and DP pulses. No significant erythema to right foot. No proximal tibial tenderness. Skin: Normal for age and race, grossly normal temperature and turgor. No acute rash. Neurologic: Alert and appropriate, no apparent acute deficits. GCS 15. Psychiatric: Mood and manner are appropriate. Grooming and personal hygiene are appropriate. Related Data Home Medications Medication Instructions Recorded Confirmed fluoxetine 20 mg capsule 20 mg PO BID 08/03/23 11/01/23 lithium carbonate 150 mg capsule 300 mg PO BID 08/03/23 11/01/23 trazodone 50 mg tablet 100 mg PO BID Sleep 08/03/23 11/01/23 buspirone 7.5 mg tablet 15 mg PO BID 09/14/23 11/01/23 hydroxyzine pamoate 25 mg capsule 100 mg PO BID anxiety 09/14/23 11/01/23 (Vistaril) polyethylene glycol 3350 17 17 g PO DAILY PRN constipation 09/14/23 11/01/23 gram/dose oral powder (Miralax) #238 grams psyllium husk 0.4 gram capsule 1.2 g (3 x 0.4 gram) PO DAILY #90 09/14/23 11/01/23 (Metamucil) caps olanzapine 5 mg tablet 5 mg PO BID 11/01/23 11/01/23 Previous Rx's Medication Instructions Recorded polyethylene glycol 3350 17 17 g PO DAILY PRN constipation 09/14/23 gram/dose oral powder (Miralax) #238 grams psyllium husk 0.4 gram capsule 1.2 g (3 x 0.4 gram) PO DAILY #90 09/14/23 (Metamucil) caps Allergies Allergy/AdvReac Type Severity Reaction Status Date / Time bee venom protein (honey bee) Allergy Severe Anaphylaxis Verified 11/01/23 12:30 omeprazole Allergy Severe Anaphylaxis Verified 11/01/23 12:30 quetiapine [From Seroquel] Allergy Severe Anaphylaxis Verified 11/01/23 12:30 shellfish derived Allergy swelling Verified 11/01/23 12:30 in mouth/throat/tongue ziprasidone [From Geodon] AdvReac Unknown unknown Verified 11/01/23 12:30 General Stated Complaint: Orthopedic SUJATA: 4 Course Vital Signs Vital signs: Vital Signs Pulse 89 11/01/23 12:25 Respiratory Rate 15 11/01/23 12:25 Blood Pressure 131/76 11/01/23 12:25 Pulse Oximetry 98 11/01/23 12:25 Pulse 89 11/01/23 12:25 Respiratory Rate 15 11/01/23 12:25 Blood Pressure 131/76 11/01/23 12:25 Blood Pressure Position Sitting 11/01/23 12:25 Pulse Oximetry 98 11/01/23 12:25 Oxygen Delivery Method Room Air 11/01/23 12:25 Oxygen Flow Rate 0 11/01/23 12:25 Pain Level 9 11/01/23 12:25 Medical Decision Making Quality:SDOH Health Related Social Needs: No Data to Display PFSH All Active Problems (Updated 11/01/23 @ 14:04 by Tim Mata MD) Right ankle sprain (Acute) Chronic constipation (Acute) Internal and external bleeding hemorrhoids (Acute) Polydrug abuse (Acute) Family history of Crohn's disease (Acute) Rectal hemorrhage (Acute) Delayed menses (Acute) Low back pain (Acute) Bright red rectal bleeding (Acute) Tobacco dependence (Acute) Marijuana smoker (Acute) Left lower quadrant abdominal pain (Acute) Pelvic pain (Acute) Gastritis (Acute) Problem related to housing and economic circumstances (Acute) Trauma and stressor-related disorder (Acute) Bipolar disorder, unspecified (Acute) Anxiety disorder, unspecified (Acute) Surgical History History of tonsillectomy and adenoidectomy Family History Mother ADHD Anxiety Crohn disease Hypertension Brother No problems noted. Sister No problems noted. Brother No problems noted. Social History Smoking/Tobacco Use Status: Current-Occasional Tobacco Type: cigarettes, e- cigarettes and smokeless tobacco Tobacco: How many years used: 7 Quit status: considering quitting Smoking risk assessment performed?: Yes Alcohol Intake: current Alcohol Intake frequency: holidays/special occasions only Alcohol type: other Drug use: Daily Substance use type: marijuana Details: Has had quite a bit today 06/08/22 Household members: family Housing: house Number of Children: 1 Communication Needs: None current occupation: Has applied for SSI How often do you talk on the phone with friends or family?: three or more times per week How often do you get together with friends or relatives?: three or more times per week Panel score (0-1 are the most socially isolated patients): 1 What type of physical activity do you participate in: none Seatbelt use: always Do you feel safe at home: Yes Do you feel safe in your relationship?: Yes Female Reproductive History Menstrual control method: none History History 1 Para 1 Hx # Term Pregnancies 0 Multiple births 0 Hx # Pregnancies 0 Ectopic pregnancies 0 AB induced 0 Hx Number of Living Children 0 AB spontaneous 0 Past Pregnancies Del. Date GA/Weeks # Preg Succ Route Wgt Sex Labor Lgth Anesth esia Location Prov Complic 04/01/18 39 No vaginal 3090.098 g Male aneam[facility] Delivery Date: 04/01/18 Last Updated by: Niecy Jerome LPN precipitous labor< 3 hrs shoulder dystocia risk d/t BMI over 30
[2023-11-01 14:05] VITALS: TEMP 37
--- NOTE | 2023-11-01 14:33 | DI.VRAD_ITS ---
PROCEDURE INFORMATION: Exam: XR Right Ankle Exam date and time: 11/01/2023 12:44 PM Age: 28 years old Clinical indication: Other: Right ankle pain TECHNIQUE: Imaging protocol: Radiologic exam of the right ankle. Views: 3 or more views. COMPARISON: CR XR ANKLE RT COMPLETE 02/27/2020 8:50 AM FINDINGS: Bones/joints: Disruption in the cortex of the medial malleolus may represent minimal cortical fracture. It was not present in 2019.. Soft tissues: Mild soft tissue swelling of the ankle IMPRESSION: Disruption in the cortex of the medial malleolus may represent minimal cortical fracture. It was not present in 2019.. Dictated and Authenticated by: Ed Lee MD. Ordering:JOCELYNE Dumont MD
== END 2023-11-01 14:27 | disposition home or self-care (01) ==
PROVIDERS: Emergency Provider Emergency Medicine; PCP Nurse Practitioner
DX: S93.401A Sprain of unspecified ligament of right ankle, initial encounter (principal); W10.8XXA Fall (on) (from) other stairs and steps, initial encounter
CPT/HCPCS: 29515; 99283; 73610

== ENCOUNTER 2023-11-06 16:49 | Outpatient (REF) | payer MEDICAID, SELFPAY ==
[2023-11-06 21:12] LABS: Abs Immature Grans 0.04 10^3/uL (0.0-0.06); Absolute Basophil Count 0.04 10^3/uL (0.0-0.2); Absolute Eosinophil Count 0.39 10^3/uL (0.0-0.7); Absolute Lymphocyte Count 2.51 10^3/uL (1.2-3.4); Absolute Monocyte Count 0.74 10^3/uL (0.1-0.8); Absolute Neutrophil Count 6.89 10^3/uL (1.2-6.7); Basophils % 0.4 %; Eosinophils % 3.7 %; HCT 40.4 % (36.0-46.0); HGB 13.2 g/dL (11.2-15.7); Immature Grans % 0.4 %; Lymphocytes % 23.7 %; MCH 27.1 pg (27.0-33.0); MCHC 32.7 % (32.0-36.0); MCV 83 fL (80-95); MPV 9.2 fL (8.0-11.0); Neutrophils % 64.8 %; Platelet Count 353 10^3/uL (130-400); RBC 4.87 10^6/uL (3.93-5.22); RDW 13.1 % (11.7-14.6); RDW-SD 39.2 fL; WBC 10.61 10^3/uL (4.4-10.8)
[2023-11-06 21:27] LABS: ALT 18 U/L (14-59); AST 15 U/L (15-37); Albumin 3.8 g/dL (3.4-5.0); Alkaline Phosphatase 76 U/L (46-116); BUN 12 mg/dL (7-18); Bilirubin, Total 0.34 mg/dL (0.2-1.0); CREATININE 0.9 mg/dL (0.55-1.02); Calcium 9.3 mg/dL (8.5-10.1); Chloride 106 mmol/L (98-107); Estimated GFR 90.42 (mL/min/1.73m2); Glucose 83 mg/dL (74-106); Potassium 4.3 mmol/L (3.5-5.1); Sodium 141 mmol/L (136-145); Total Protein 6.7 g/dL (6.4-8.2)
== END 2023-11-06 16:50 | disposition home or self-care (01) ==
LOC: LBN 16:49
PROVIDERS: PCP Nurse Practitioner; Visit Provider Nurse Practitioner Family
DX: R10.9 Unspecified abdominal pain (principal); J02.9 Acute pharyngitis, unspecified; H60.331 Swimmer's ear, right ear
CPT/HCPCS: 80053; 85025

== ENCOUNTER 2023-12-24 20:55 | Outpatient (CLI) | payer MEDICAID, SELFPAY ==
[2023-12-24 15:05] LABS: Abs Immature Grans 0.05 10^3/uL (0.0-0.06); Absolute Basophil Count 0.05 10^3/uL (0.0-0.2); Absolute Eosinophil Count 0.32 10^3/uL (0.0-0.7); Absolute Lymphocyte Count 2.95 10^3/uL (1.2-3.4); Absolute Monocyte Count 0.63 10^3/uL (0.1-0.8); Absolute Neutrophil Count 4.25 10^3/uL (1.2-6.7); Basophils % 0.6 %; Eosinophils % 3.9 %; HCT 42.2 % (36.0-46.0); HGB 13.7 g/dL (11.2-15.7); Immature Grans % 0.6 %; Lymphocytes % 35.8 %; MCH 26.6 pg (27.0-33.0); MCHC 32.5 % (32.0-36.0); MCV 82 fL (80-95); MPV 8.7 fL (8.0-11.0); Monocytes % 7.6 %; Neutrophils % 51.5 %; Platelet Count 310 10^3/uL (130-400); RBC 5.15 10^6/uL (3.93-5.22); RDW-SD 41.1 fL; WBC 8.25 10^3/uL (4.4-10.8)
[2023-12-24 16:03] LABS: Ferritin 27 ng/mL (8-252); HCG Quant, Pregnancy 331 mIU/mL (1-3); TSH (W/Ref FT4) 1.33 uIU/mL (0.36-3.74)
[2023-12-24 16:12] LABS: C-Reactive Protein < 0.50 mg/dL (<or=0.5)
[2023-12-24 16:18] LABS: Vitamin B12 665 pg/mL (193-986)
[2023-12-24 16:20] LABS: Folate > 20.0 ng/mL (8.6-20.0)
== END 2023-12-24 20:56 | disposition home or self-care (01) ==
LOC: LBO 21:16
PROVIDERS: Advanced Practice Midwife; PCP Nurse Practitioner; Visit Provider Surgery
DX: O20.0 Threatened abortion (principal); F12.90 Cannabis use, unspecified, uncomplicated; K62.5 Hemorrhage of anus and rectum; Z83.79 Family history of other diseases of the digestive system; R10.32 Left lower quadrant pain; F17.200 Nicotine dependence, unspecified, uncomplicated; F19.10 Other psychoactive substance abuse, uncomplicated; F31.9 Bipolar disorder, unspecified; F41.9 Anxiety disorder, unspecified; K64.4 Residual hemorrhoidal skin tags; K64.8 Other hemorrhoids; N91.0 Primary amenorrhea
CPT/HCPCS: 36415; 82607; 82728; 82746; 84443; 84702; 85025; 86140

== ENCOUNTER 2023-12-31 18:18 | Outpatient (CLI) | payer MEDICAID, SELFPAY ==
[2023-12-31 18:50] LABS: HCG Quant, Pregnancy 13 mIU/mL (1-3)
== END 2023-12-31 18:19 | disposition home or self-care (01) ==
LOC: LBO 18:18
PROVIDERS: PCP Nurse Practitioner; Visit Provider Advanced Practice Midwife
DX: O20.0 Threatened abortion (principal)
CPT/HCPCS: 36415; 84702

== ENCOUNTER 2024-01-15 09:30 | Emergency (ER) | payer MEDICAID, SELFPAY ==
[2024-01-15 09:33] VITALS: BP 141/89; PULSE 90; RESP 16; TEMP 37.1; O2SAT 97
--- NOTE | 2024-01-15 09:43 | W.ED.GENAD ---
Discharge Plan Disposition Patient Disposition: Home Condition: Stable Discharge Details Clinical Impression: Lumbar back pain Primary Care Provider: Goldie Chatterjee ED Provider: Tommy Jurado Home Meds and New Rx's Prescriptions: New cyclobenzaprine 10 mg tablet 10 mg PO TID PRNQty: 20 0RF Continued trazodone 50 mg tablet 100 mg PO BID olanzapine 5 mg tablet 5 mg PO BID Patient Comments: TAKE 1 TABLET BY MOUTH EVERY NIGHT AT BEDTIME AND TAKE 1 TABLET DAILY NEEDED FOR ANXIETY Discharge Instructions Additional Instructions: Follow-up with your primary care provider if not better in 1 to 2 weeks If you feel more ill or develop new symptoms such as severe abdominal pain or high fevers return to the emergency department for reevaluation You can take 1000 mg of acetaminophen and 600 mg of ibuprofen every 6 hours as needed HPI General Mode of arrival: ambulatory. Date/Time Provider Initiated Documentation: 01/15/24 09:32. Limitations to Documentation: no limitations. Information obtained by: patient. History of Present Illness 28 year old F presents to the emergency department with the chief complaint of lower back pain, described as moderate, Quality is described as aching, and is localized to the back. Patient reports no radiation. Patient started experiencing this day(s) (1) and it has been constant. No relieving factors improve symptom(s), No exacerbating factors reported . Patient notes no other symptoms.. Patient did receive the following treatments prior to arrival, none Related Data Home Medications ?Medication ?Instructions ?Recorded ?Confirmed trazodone 50 mg tablet 100 mg PO BID Sleep 08/03/23 01/15/24 olanzapine 5 mg tablet 5 mg PO BID 11/01/23 01/15/24 cyclobenzaprine 10 mg tablet 10 mg PO TID PRN #20 tabs 01/15/24 Previous Rx's ?Medication ?Instructions ?Recorded cyclobenzaprine 10 mg tablet 10 mg PO TID PRN #20 tabs 01/15/24 Allergies Allergy/AdvReac Type Severity Reaction Status Date / Time bee venom protein (honey bee) Allergy Severe Anaphylaxis Verified 01/15/24 09:37 omeprazole Allergy Severe Anaphylaxis Verified 01/15/24 09:37 quetiapine (From Seroquel) Allergy Severe Anaphylaxis Verified 01/15/24 09:37 shellfish derived Allergy swelling Verified 01/15/24 09:37 in mouth/throat/tongue ziprasidone (From Geodon) AdvReac Unknown unknown Verified 01/15/24 09:37 General Stated Complaint: Nk/Back Pain SUJATA: 4 Review of Systems All systems reviewed & are unremarkable except as noted in HPI and below Constitutional Constitutional: Denies chills, Denies fever(s) and Denies weakness Cardiovascular Cardiovascular: Denies chest pain and Denies dyspnea Respiratory Respiratory: Denies cough and Denies dyspnea Gastrointestinal Gastrointestinal: Denies abdominal pain, Denies nausea and Denies vomiting Musculoskeletal Musculoskeletal: Reports back pain and Denies joint swelling Neurologic Neurologic: Denies weakness Exam Const General: no acute distress Orientation: alert HENMT Head: normal to inspection Ears: external ears normal General nose exam: external nose normal Mouth: moist mucous membranes Eyes General: appearance normal, both eyes and all related structures Neck Neck: normal visual inspection Resp Effort & Inspection: normal respiratory effort and able to speak in complete sentences Cardio Rate: regular rate GI Palpation: soft and nontender Back/Spine/Pelvis Back: no CVA tenderness Skin General skin exam: no rashes or lesions noted Neuro General: patient alert and patient oriented x3 Extrem General: normal to inspection Psych Mental Status: mental status grossly normal Course Vital Signs Vital signs: Vital Signs Temperature 37.1 C 01/15/24 09:33 Pulse 90 01/15/24 09:33 Respiratory Rate 16 01/15/24 09:33 Blood Pressure 141/89 H 01/15/24 09:33 Pulse Oximetry 97 01/15/24 09:33 Temperature 37.1 C 01/15/24 09:33 Temperature Source Temporal Artery Scan 01/15/24 09:33 Pulse 90 01/15/24 09:33 Respiratory Rate 16 01/15/24 09:33 Respiratory Effort Normal 01/15/24 09:36 Blood Pressure 141/89 H 01/15/24 09:33 Blood Pressure Position Sitting 01/15/24 09:33 Pulse Oximetry 97 01/15/24 09:33 Oxygen Delivery Method Room Air 01/15/24 09:33 Oxygen Flow Rate 0 01/15/24 09:33 Pain Level 9 01/15/24 09:36 Medical Decision Making 28-year-old female with a history of bipolar, was earlier this month but states she had a miscarriage a few weeks ago comes in with nontraumatic lower back pain since last night. She denies any IV drug use and no fevers, no weakness, no difficulty urinating or with bowel movements. She is oriented x 4 on arrival and ambulatory. She has no saddle anesthesia and intact distal sensation and pulses in the legs. Normal reflexes. She localizes the pain across the entire lumbar region with no visible or palpable deformities, no upper back pain. Soft nontender abdomen. I suspect musculoskeletal back pain versus muscle spasm, will treat with Toradol, cyclobenzaprine and lidocaine patch and reassess. She has no findings on exam or history to suggest cauda equina, spinal epidural abscess so do not feel emergent MRI indicated. She has no infectious symptoms to suggest osteomyelitis and given lack of trauma I do not feel any imaging emergently indicated. Patient feels significant better requesting discharge. Still no concerning findings on exam, she will follow-up with her PCP and return precautions given. Differential Diagnosis Differential Diagnosis: Spasm, strain Medical Records Medical records reviewed: Yes I reviewed the patient's medical records. Quality:SDOH Health Related Social Needs: No Data to Display PFSH All Active Problems (Updated 01/15/24 @ 09:58 by Tommy Jurado MD) Lumbar back pain (Acute) Miscarriage, threatened, early (Acute) (Acute) Chronic constipation (Acute) Internal and external bleeding hemorrhoids (Acute) Polydrug abuse (Acute) Family history of Crohn's disease (Acute) Tobacco dependence (Acute) Marijuana smoker (Acute) Gastritis (Acute) Problem related to housing and economic circumstances (Acute) Trauma and stressor-related disorder (Acute) Bipolar disorder, unspecified (Acute) Anxiety disorder, unspecified (Acute) Medical History (Updated 01/15/24 @ 09:58 by Tommy Jurado MD) Rectal hemorrhage Bright red rectal bleeding Low back pain Pelvic pain Left lower quadrant abdominal pain Delayed menses Missed menses Surgical History History of tonsillectomy and adenoidectomy Family History Mother ADHD Anxiety Crohn disease Hypertension Brother No problems noted. Sister No problems noted. Brother No problems noted. Social History Smoking/Tobacco Use Status: Current-Occasional Tobacco Type: cigarettes, e-cigarettes and smokeless tobacco Tobacco: How many years used: 7 Quit status: considering quitting Smoking risk assessment performed?: Yes Alcohol Intake: current Alcohol Intake frequency: holidays/special occasions only Alcohol type: other Drug use: Daily Substance use type: marijuana Details: Has had quite a bit today 06/08/22 Household members: family Housing: house Number of Children: 1 Communication Needs: None current occupation: Has applied for SSI How often do you talk on the phone with friends or family?: three or more times per week How often do you get together with friends or relatives?: three or more times per week Panel score (0-1 are the most socially isolated patients): 1 What type of physical activity do you participate in: none Seatbelt use: always Do you feel safe at home: Yes Do you feel safe in your relationship?: Yes Female Reproductive History Menstrual control method: none History History 2 Para 1 Hx # Term Pregnancies 1 Multiple births 0 Hx # Pregnancies 0 Ectopic pregnancies 0 AB induced 0 Hx Number of Living Children 1 AB spontaneous 0 Past Pregnancies Del. Date GA/Weeks # Preg Succ Route Wgt Sex Labor Lgth Anesthesia Location Prov Complic 04/01/18 39 No vaginal 3090.098 g Male [facility] Delivery Date: 04/01/18 Last Updated by: Niecy Jerome LPN precipitous labor< 3 hrs shoulder dystocia risk d/t BMI over 30 PAWSS Have you Been Recently Intoxicated or Drunk Within the Last 30 days?: No Have you Ever Experienced Previous Episodes of Alcohol Withdrawal?: No Have you ever Experienced Withdrawal Seizures?: No Have you ever Experienced Delirium Tremens(DT)s?: No Have you ever undergone Alcohol Rehabilitation Treatment (i.e, inpt ot outpatient treatment programs)?: No Have you ever Experienced Blackouts?: No Have you ever Combined Alcohol with other Downers within the last 90 days?: No Have you ever Combined Alcohol with any other Substance of Abuse during the last 90 days?: No Result: 0
[2024-01-15] MEDS: Ketorolac 15 MG/ML VIAL IM (09:55)
[2024-01-15] MEDS: Lidocaine 5% Patch 1 PATCH TP (09:55)
[2024-01-15] MEDS: Cyclobenzaprine 10 MG TAB PO (09:55)
[2024-01-15 10:42] VITALS: PULSE 78; RESP 16; TEMP 36.3; O2SAT 96
== END 2024-01-15 10:44 | disposition home or self-care (01) ==
PROVIDERS: Emergency Provider Emergency Medicine; PCP Nurse Practitioner
DX: M54.50 Low back pain, unspecified (principal); M62.830 Muscle spasm of back
CPT/HCPCS: 96372; 99283; J1885

== ENCOUNTER 2024-01-28 02:19 | Outpatient (CLI) | payer MEDICAID, SELFPAY ==
--- NOTE | 2024-01-28 09:41 | DI.RAD_ITS ---
Exam(s) XR LUMBAR SPINE COMPLETE EXAM: XR LUMBAR SPINE COMPLETE CLINICAL HISTORY: Acute on chronic low back, SI joint PAIN,M54.9. TECHNIQUE: 2D digital imaging was performed. Five views. COMPARISON: No exams were available for comparison FINDINGS: BONES: No fracture or destructive lesion. Vertebral body heights are maintained. No facet hypertro phy identified . No spondylolysis or spondylolisthesis. The SI joints appear normal. DISKS: Intervertebral disc spaces are maintained. ALIGNMENT: Lumbar spinal alignment is within normal limits. SOFT TISSUE: Normal. IMPRESSION: Unremarkable radiographs of the lumbar spine. DATA REPOSITORY: RADIATION DOSE DELIVERED:
== END 2024-01-28 02:39 ==
LOC: DI 02:19
PROVIDERS: PCP Nurse Practitioner; Visit Provider Family Medicine
DX: M54.89 Other dorsalgia (principal)
CPT/HCPCS: 72110